=== PATIENT | male | born 1950 | race Caucasian/White ===

== ENCOUNTER 2016-10-17 10:54 | Day surgery (SDC) | payer MEDICARE, OTHER ==
[~2016-10-17] VITALS: Ht 172.7 cm; Wt 71.2 kg
[2016-10-17] MEDS ORDERED: LIDOCAINE 2%HCL (LOCAL ANESTH.) INJ 20ML MDV ONE (11:51)
[2016-10-17] MEDS ORDERED: IOHEXOL 350 MG/ML 100ML IJ ONE (11:51)
[2016-10-17] MEDS ORDERED: MIDAZOLAM HCL 1MG/1ML-2 ML VIAL ONE (13:04)
[2016-10-17] MEDS ORDERED: ANGIOMAX 250 MG VIAL IV ONE (13:04)
[2016-10-17] MEDS ORDERED: fentaNYL CITRATE 100 MCG/2 ML VL ONE (13:04)
[2016-10-17] MEDS ORDERED: SODIUM CHL 0.9% 0 ML ONE (13:05)
[2016-10-17] MEDS ORDERED: SODIUM CHLORIDE 0.9% 1,000 ML IV SCH (14:19)
== END 2016-10-17 16:00 | disposition home or self-care (01) ==
LOC: CATH 10:54 → EDUNIT# 10:54 → CATH 16:00
PROVIDERS: ATTEND Internal Medicine Cardiovascular Disease
DX: I25.10 Atherosclerotic heart disease of native coronary artery without angina pectoris (principal); Z95.1 Presence of aortocoronary bypass graft; R94.39 Abnormal result of other cardiovascular function study; I74.8 Embolism and thrombosis of other arteries
CPT/HCPCS: 93460; C1760; C1894; J1644; J2250; J3010; J7030; Q9967; 99152

== ENCOUNTER 2017-06-15 07:38 | Day surgery (SDC) | payer MEDICARE, OTHER ==
[~2017-06-15] VITALS: Ht 172.7 cm; Wt 80.7 kg
[~2017-06-15 07:38] MED LIST: ALPR1TAB2 PO; ASPI81TA27 PO; ATEN-60 PO; CLOP75TA28 PO; HYDR2TAB58 PO; IOHEXOL 350 MG/ML 100ML IJ ONE; ISOS10TA2 PO; LIDOCAINE 2%HCL (LOCAL ANESTH.) INJ 20ML MDV ONE; NITR0.4S29 SL; POTA20TA53 PO; QUET50TA PO; RANO500T2 PO; ROSU40TA PO; TEMA15CA91 PO; VORT10TA PO
[2017-06-15] MEDS ORDERED: fentaNYL CITRATE 100 MCG/2 ML VL ONE ×2 (08:05→09:00)
[2017-06-15] MEDS ORDERED: ANGIOMAX 250 MG VIAL IV ONE (08:05)
[2017-06-15] MEDS ORDERED: SODIUM CHL 0.9% 0 ML ONE (08:06)
[2017-06-15] MEDS ORDERED: MIDAZOLAM HCL 1MG/1ML-2 ML VIAL ONE ×2 (08:06→08:53)
[2017-06-15] MEDS ORDERED: IODIXANOL 320MG/ML 100ML BTL IV ONE (08:38)
== END 2017-06-15 11:20 | disposition home or self-care (01) ==
LOC: CATH 07:38
PROVIDERS: ATTEND Internal Medicine
DX: I25.10 Atherosclerotic heart disease of native coronary artery without angina pectoris (principal); R94.39 Abnormal result of other cardiovascular function study; Z88.4 Allergy status to anesthetic agent; Z88.1 Allergy status to other antibiotic agents; E66.9 Obesity, unspecified; Z68.27 Body mass index [BMI] 27.0-27.9, adult; Z95.1 Presence of aortocoronary bypass graft; I10 Essential (primary) hypertension; E11.9 Type 2 diabetes mellitus without complications
CPT/HCPCS: 93458; C1760; C1769; C1894; J1644; J2250; J3010; J7030; Q9967; 99152; 99153

== ENCOUNTER → 2017-12-19 | Outpatient (CLI) | payer MEDICARE, OTHER ==
[~2017-12-19] VITALS: Ht 172.7 cm; Wt 81.6 kg
[~2017-12-19] MED LIST changes: +ADENOSINE 90 MG/30 ML INJ IV ONE; +ALPR1TAB7 PO; +ASPI81TA13 PO; +BENA10TA53 PO; +ESCI20TA PO; +EZET10TA38 PO; +FURO20TA PO; +HYDR-4683 PO; -IOHEXOL 350 MG/ML 100ML IJ ONE; +ISOS1TAB37 PO; +LANS15CA21 PO; +LEVO100T8 PO; -LIDOCAINE 2%HCL (LOCAL ANESTH.) INJ 20ML MDV ONE; +MEGE40SU PO; +POT20T PO; +ROSU20TA14 PO; +ZOLP10TA6 PO
== END | disposition home or self-care (01) ==
LOC: MERGE 08:54 → Rad HDHVI 08:54
PROVIDERS: ATTEND Internal Medicine Cardiovascular Disease
DX: I25.10 Atherosclerotic heart disease of native coronary artery without angina pectoris (principal); I10 Essential (primary) hypertension; E78.5 Hyperlipidemia, unspecified; R53.1 Weakness; Z95.1 Presence of aortocoronary bypass graft
CPT/HCPCS: 78452; 93005; 96374; 96375; A9500; J0153

== ENCOUNTER → 2017-12-28 | Outpatient (CLI) | payer MEDICARE, OTHER ==
[~2017-12-28] MED LIST changes: -ADENOSINE 90 MG/30 ML INJ IV ONE
[2017-12-28 11:05] VITALS: BP 125/71
[2017-12-28 11:35] VITALS: BP 117/72
[2017-12-28 15:55] LABS: Basophils # (auto) 0 uL; Basophils % (auto) 0.9 % (0.0-2.0); Eosinophils # (auto) 0.1 uL; Hematocrit 38.5 % (41.0-53.0); Hemoglobin 13.1 g/dL (13.5-17.5); Lymphocytes # (auto) 1.1 uL; Lymphocytes % (auto) 23.6 % (10.0-50.0); Mean Corpuscular Hemoglobin 30.6 pg (28.0-32.0); Mean Corpuscular Hgb Conc. 33.9 g/dL (32.0-36.0); Monocytes # (auto) 0.4 uL; Monocytes % (auto) 8.3 % (0.0-12.0); Neutrophils # (auto) 3.1 uL; Neutrophils % (auto) 64.2 % (37.0-80.0); Nucleated Red Blood Cells % 0.1 %; Platelet Count (auto) 181 10^3/uL (140-450); Red Blood Cells 4.27 10^6/uL (4.5-5.90); Red Cell Distribution Width 14.2 % (11.8-14.3); White Blood Cell 4.9 10^3/uL (4.4-10.8)
[2017-12-28 15:57] LABS: BUN/Creatinine Ratio 15.1; Calcium 8.4 mg/dL (8.5-10.1); Potassium 3.8 mmol/L (3.5-5.1)
[2017-12-28 16:04] LABS: INR 0.99 (0.9-1.15); Partial Thromboplastin Time 25.4 sec (23.78-33.04); Prothrombin Time 10.6 sec (9.27-12.13)
== END | disposition home or self-care (01) ==
LOC: MERGE 10:50 → Rad HDHVI 10:50
PROVIDERS: ATTEND Internal Medicine Cardiovascular Disease
DX: Z01.818 Encounter for other preprocedural examination (principal); I70.0 Atherosclerosis of aorta; I10 Essential (primary) hypertension; D64.9 Anemia, unspecified; R79.1 Abnormal coagulation profile; Z95.1 Presence of aortocoronary bypass graft; Z79.899 Other long term (current) drug therapy
CPT/HCPCS: 36415; 71046; 80048; 85025; 85610; 85730; G0463

== ENCOUNTER 2018-01-02 07:05 | Day surgery (SDC) | payer MEDICARE, OTHER ==
[~2018-01-02 07:05] MED LIST changes: +ASPI1TAB19 PO; -ASPI81TA13 PO; -BENA10TA53 PO; +BENA10TA84 PO; -POTA20TA53 PO; -QUET50TA PO
[2018-01-02] MEDS ORDERED: LIDOCAINE 2% (LOCAL ANESTH.) PF 5ml SDV ONE (07:25)
[2018-01-02] MEDS ORDERED: IOHEXOL 350 MG/ML 100ML IJ ONE (07:25)
[2018-01-02] MEDS ORDERED: IODIXANOL 320MG/ML 100ML BTL IV ONE (07:26)
[2018-01-02] MEDS ORDERED: ANGIOMAX 250 MG VIAL IV ONE (07:38)
[2018-01-02] MEDS ORDERED: fentaNYL CITRATE 100 MCG/2 ML VL ONE (07:39)
[2018-01-02] MEDS ORDERED: MIDAZOLAM HCL 1MG/1ML-2 ML VIAL ONE (07:39)
[2018-01-02] MEDS ORDERED: SODIUM CHL 0.9% 50 ML ONE (07:39)
[2018-01-02] MEDS ORDERED: diphenhdrAMINE HCL 50 MG/1 ML VL ONE (09:27)
== END 2018-01-02 12:50 | disposition home or self-care (01) ==
LOC: CATH 07:05
PROVIDERS: ATTEND Internal Medicine
DX: I25.119 Atherosclerotic heart disease of native coronary artery with unspecified angina pectoris (principal); Q25.0 Patent ductus arteriosus; I10 Essential (primary) hypertension; E11.9 Type 2 diabetes mellitus without complications; E78.5 Hyperlipidemia, unspecified; Z88.1 Allergy status to other antibiotic agents; Z88.6 Allergy status to analgesic agent; Z95.1 Presence of aortocoronary bypass graft; Z95.5 Presence of coronary angioplasty implant and graft; Z82.49 Family history of ischemic heart disease and other diseases of the circulatory system
CPT/HCPCS: 93459; 93571; 93572; A6257; C1760; C1769; C1887; C1894; J0583; J1200; J1644; J2001; J2250; J3010; J7030; Q9967; 99152; 99153

== ENCOUNTER → 2018-02-13 | Outpatient (CLI) | payer MEDICARE, OTHER ==
[~2018-02-13] MED LIST changes: +IOHEXOL 350 MG/ML 100ML IJ ONE
[2018-02-13 11:10] VITALS: BP 134/75
[2018-02-13 12:10] VITALS: BP 126/65
== END | disposition home or self-care (01) ==
LOC: Rad HDHVI 11:33
PROVIDERS: ATTEND Internal Medicine
DX: S09.90XA Unspecified injury of head, initial encounter (principal); I67.2 Cerebral atherosclerosis; I67.82 Cerebral ischemia; X58.XXXA Exposure to other specified factors, initial encounter; Y93.89 Activity, other specified; Y92.89 Other specified places as the place of occurrence of the external cause; Y99.8 Other external cause status
CPT/HCPCS: 70470; 82565; G0463; Q9967

== ENCOUNTER → 2018-05-03 | Outpatient (CLI) | payer MEDICARE, OTHER ==
[~2018-05-03] VITALS: Ht 30.5 cm; Wt 0.5 kg
[~2018-05-03] MED LIST changes: -IOHEXOL 350 MG/ML 100ML IJ ONE; +ONDANSETRON HCL 4 MG/2 ML VIAL IV ONE; +ONDANSETRON HCL 4 MG/2 ML VIAL ONE
[2018-05-03 12:00] VITALS: BP 109/63
[2018-05-03 12:25] VITALS: BP 116/69
--- NOTE | 2018-05-03 12:25 | NUR ---
IN TO CLINIC AFTER SEEING DR TANG. PT REPORT NAUSEA AND VOMITING, MUCOUS MEMBRANES APPEAR DRY. MEDICATION ADMINISTAERED PER ORDER TOLERATED WELL. OBSERVED FOR 10 MINUTES POST INJECTION WITH NO ADVERSE REACTION NOTED. VS WNL. AFFECT CHEERFUL AND JOKING. MEDICATION ADMINISTRATION ZOFRAN 4 MG IVP AT 1215 Discharge Instructions See e-MAR for any mediations given with this visit. Patient education given on disease process. Patient verbalized understanding. Previous labs reviewed. Patient discharged in stable condition with after care instructions and follow up appointment.
== END | disposition home or self-care (01) ==
LOC: CHF HDHVI 12:07
PROVIDERS: ATTEND Internal Medicine Cardiovascular Disease
DX: E86.0 Dehydration (principal); I12.9 Hypertensive chronic kidney disease with stage 1 through stage 4 chronic kidney disease, or unspecified chronic kidney disease; E11.22 Type 2 diabetes mellitus with diabetic chronic kidney disease; N18.1 Chronic kidney disease, stage 1; R11.0 Nausea; I08.3 Combined rheumatic disorders of mitral, aortic and tricuspid valves; I25.10 Atherosclerotic heart disease of native coronary artery without angina pectoris; G89.29 Other chronic pain; E66.9 Obesity, unspecified; F41.9 Anxiety disorder, unspecified; J44.9 Chronic obstructive pulmonary disease, unspecified; I25.2 Old myocardial infarction; E03.9 Hypothyroidism, unspecified; E78.00 Pure hypercholesterolemia, unspecified; Z95.5 Presence of coronary angioplasty implant and graft; Z95.1 Presence of aortocoronary bypass graft; Z79.899 Other long term (current) drug therapy; Z86.73 Personal history of transient ischemic attack (TIA), and cerebral infarction without residual deficits; Z68.27 Body mass index [BMI] 27.0-27.9, adult
CPT/HCPCS: 96374; G0463; J2405

== ENCOUNTER → 2018-06-18 | Outpatient (CLI) | payer MEDICARE, OTHER ==
[~2018-06-18] MED LIST changes: -ONDANSETRON HCL 4 MG/2 ML VIAL IV ONE; -ONDANSETRON HCL 4 MG/2 ML VIAL ONE
== END | disposition home or self-care (01) ==
LOC: Rad HDHVI 16:26
PROVIDERS: ATTEND Internal Medicine
DX: M51.37 Other intervertebral disc degeneration, lumbosacral region (principal)
CPT/HCPCS: 72100

== ENCOUNTER → 2019-03-06 | Outpatient (CLI) | payer MEDICARE, OTHER ==
[~2019-03-06] VITALS: Ht 172.7 cm; Wt 78.0 kg
[~2019-03-06] MED LIST changes: +ADENOSINE 66 MG in GIVE UN-DILUTED 0 ML IV ONE; +ADENOSINE 90 MG/30 ML INJ IV ONE; +ASPI-404 PO; -ASPI81TA27 PO; +EZET10TA24 PO; -EZET10TA38 PO; +FURO1TAB33 PO; -FURO20TA PO; -HYDR-4683 PO; +HYDR-4833 PO
== END | disposition home or self-care (01) ==
LOC: Rad HDHVI 13:20
PROVIDERS: ATTEND Internal Medicine
DX: R07.89 Other chest pain (principal); I10 Essential (primary) hypertension; E78.00 Pure hypercholesterolemia, unspecified; Z95.1 Presence of aortocoronary bypass graft
CPT/HCPCS: 78452; 93005; 96374; 96375; A9500; J0153

== ENCOUNTER → 2019-06-10 | Outpatient (CLI) | payer MEDICARE, OTHER ==
[~2019-06-10] MED LIST changes: -ADENOSINE 66 MG in GIVE UN-DILUTED 0 ML IV ONE; -ADENOSINE 90 MG/30 ML INJ IV ONE
== END | disposition home or self-care (01) ==
LOC: Rad HDHVI 12:52
PROVIDERS: ATTEND Internal Medicine
DX: R06.02 Shortness of breath (principal); I10 Essential (primary) hypertension; R07.9 Chest pain, unspecified
CPT/HCPCS: 93306

== ENCOUNTER → 2019-09-03 | Outpatient (CLI) | payer MEDICARE, OTHER ==
[2019-09-04 04:06] LABS: RPR Non Reactive (Non Reactive)
[2019-09-04 09:01] LABS: Hepatitis B Surface Antibody Negative
[2019-09-04 09:38] LABS: Hepatitis A Total Antibody Negative
[2019-09-04 09:47] LABS: Hepatitis B Core Total AB Negative; Hepatitis B Surface Antigen Negative (Negative); Hepatitis C Antibody Negative (Negative)
== END | disposition home or self-care (01) ==
LOC: LAB 14:14
PROVIDERS: ATTEND Internal Medicine
DX: Z11.4 Encounter for screening for human immunodeficiency virus [HIV] (principal); B20 Human immunodeficiency virus [HIV] disease; Z20.5 Contact with and (suspected) exposure to viral hepatitis
CPT/HCPCS: 36415; 86592; 86695; 86696; 86703; 86704; 86706; 86708; 86803; 87340

== ENCOUNTER → 2019-09-25 | Outpatient (CLI) | payer MEDICARE, OTHER | END | disposition home or self-care (01) | LOC: LAB 14:54 | PROVIDERS: ATTEND Internal Medicine | DX: A74.9 Chlamydial infection, unspecified (principal); A54.9 Gonococcal infection, unspecified ==

== ENCOUNTER → 2020-01-02 | Outpatient (CLI) | payer MEDICARE, OTHER ==
[~2020-01-02] MED LIST changes: -ASPI-404 PO; +ASPI-543 PO; +ASPI-691 PO; +HYDR4TAB2 PO; +LANS30CA57 PO; +QUET50TA PO
[2020-01-02 13:06] LABS: Basophils # (auto) 0 10 ^3/uL (0-0.2); Basophils % (auto) 0.7 % (0.0-2.0); Eosinophils # (auto) 0.2 10 ^3/uL (0-0.8); Eosinophils % (auto) 2.9 % (0.0-7.0); Hematocrit 38.8 % (41.0-53.0); Hemoglobin 12.8 g/dL (13.5-17.5); Lymphocytes # (auto) 1.6 10 ^3/uL (0.4-5.4); Lymphocytes % (auto) 28.9 % (10.0-50.0); Mean Corpuscular Hemoglobin 29.5 pg (28.0-32.0); Mean Corpuscular Hgb Conc. 32.9 g/dL (32.0-36.0); Mean Corpuscular Volume 89.9 fL (80.0-100.0); Monocytes # (auto) 0.5 10 ^3/uL (0-1.3); Monocytes % (auto) 8.1 % (0.0-12.0); Neutrophils # (auto) 3.4 10 ^3/uL (1.6-8.6); Neutrophils % (auto) 59.4 % (37.0-80.0); Nucleated Red Blood Cells % 0.1 %; Platelet Count (auto) 208 10^3/uL (140-450); Red Blood Cells 4.32 10^6/uL (4.5-5.90); Red Cell Distribution Width 13.5 % (11.8-14.3); White Blood Cell 5.7 10^3/uL (4.4-10.8)
[2020-01-02 13:16] LABS: Potassium 3.7 mmol/L (3.5-5.1)
[2020-01-02 13:19] LABS: BUN/Creatinine Ratio 11.1; Calcium 8.9 mg/dL (8.5-10.1)
[2020-01-02 13:22] LABS: INR 1.04 (0.9-1.15); Partial Thromboplastin Time 25.6 sec (23.0-31.2)
== END | disposition home or self-care (01) ==
LOC: Rad HDHVI 10:10
PROVIDERS: ATTEND Internal Medicine
DX: Z01.812 Encounter for preprocedural laboratory examination (principal); I70.0 Atherosclerosis of aorta; R07.9 Chest pain, unspecified; Z95.1 Presence of aortocoronary bypass graft
CPT/HCPCS: 36415; 71046; 80048; 85025; 85610; 85730

== ENCOUNTER 2020-01-21 06:58 | Inpatient (IN) | payer MEDICARE, OTHER ==
--- NOTE | 2020-01-02 14:35 | NUR ---
Per pt. and , their daughter who was visiting them in their home yesterday called 20 minutes ago & informed them that she was just notified by her local ER that she tested positive for COVID-19. Apparently she felt ill after arriving home from her visit & went to her local ER to be evaluated. Dr. Ivory notified by this RN re: this situation & orders received to postpone procedure until after incubation period of at least 2 wks. Pt. and instructed to return to Dr. Ivory's office to reschedule Heart Cath procedure and were compliant.
--- NOTE | 2020-01-08 16:45 | NUR ---
See Communication order re: [facility] procedure schedule change.
[~2020-01-21] VITALS: Ht 172.7 cm; Wt 84.3 kg
[~2020-01-21 06:58] MED LIST changes: -ALPR1TAB7 PO; -ASPI-543 PO; -ASPI1TAB19 PO; -BENA10TA84 PO; -ESCI20TA PO; -EZET10TA24 PO; -FURO1TAB33 PO; -HYDR-4833 PO; -HYDR2TAB58 PO; -ISOS10TA2 PO; -ISOS1TAB37 PO; -LANS15CA21 PO; -MEGE40SU PO; -POT20T PO; -RANO500T2 PO; -ROSU20TA14 PO; -TEMA15CA91 PO; -ZOLP10TA6 PO
[2020-01-21] MEDS ORDERED: IODIXANOL 320MG/ML 100ML BTL IV ONE ×2 (07:35→09:40)
[2020-01-21] MEDS ORDERED: LIDOCAINE 2%HCL (LOCAL ANESTH.) INJ 20ML MDV ONE (07:35)
[2020-01-21] MEDS ORDERED: ANGIOMAX 250 MG VIAL IV ONE (08:26)
[2020-01-21] MEDS ORDERED: HEPARIN SODIUM (PORCINE) 5000 UNITS/ML 1ML VIAL ONE (08:26)
[2020-01-21] MEDS ORDERED: VERAPAMIL 2.5MG/ML INJ 2ML VIAL IV ONE (08:26)
[2020-01-21] MEDS ORDERED: fentaNYL CITRATE 100 MCG/2 ML VL ONE (08:27)
[2020-01-21] MEDS ORDERED: MIDAZOLAM HCL 1MG/1ML-2 ML VIAL ONE (08:27)
[2020-01-21] MEDS ORDERED: CLOPIDOGREL BISULFATE 75 MG TAB ONE (10:03)
[2020-01-21] MEDS ORDERED: ASPirin 81 mg TAB ONE (10:03)
--- NOTE | 2020-01-21 10:08 | NUR ---
[facility] report received from KOBI Maya. No s/s of distress/SOB, patient is AO x4, no c/o pain at this time. Left radial site has sign of scant blood, no active bleeding or hematoma noted, continuous pulse ox applied to left first finger. Vasc band is in place, positive circulation, sensation and movement noted to bilateral extremities. Patient verbalized understanding to post-procedure care/education.
--- NOTE | 2020-01-21 10:23 | NUR ---
Patient awake in bed, breaths are even and unlabored. Patient denies pain at this time, left radial site remains unchanged.
--- NOTE | 2020-01-21 10:25 | NUR ---
Spoke to patient's , Charleen, via telephone. Updated on POC, all questions answered at this time.
[2020-01-21] MEDS ORDERED: HYDROcodone-ACET 5/325MG TAB PO PRN (10:30)
[2020-01-21] MEDS ORDERED: NITROGLYCERIN 0.4 MG SL TAB SL PRN ×2 (10:30)
[2020-01-21] MEDS ORDERED: ACETAMINOPHEN 500 MG TAB PO PRN (10:30)
--- NOTE | 2020-01-21 10:39 | NUR ---
Report given to primary RN, Leticia.
[2020-01-21] MEDS ORDERED: HYDROmorphone HCL 2 MG TAB PO PRN (10:45)
[2020-01-21] MEDS ORDERED: ALPRAZolam 0.5 MG TAB PO PRN (10:45)
[2020-01-21] MEDS ORDERED: ASPirin-EC 325mg tab PO ONE (10:45)
[2020-01-21] MEDS ORDERED: ATENOLOL 25 MG TAB PO ONE (11:00)
[2020-01-21] MEDS ORDERED: LEVOTHYROXINE SODIUM 100 MCG TAB PO ONE (11:00)
[2020-01-21] MEDS ORDERED: CLOPIDOGREL BISULFATE 75 MG TAB PO ONE (11:00)
--- NOTE | 2020-01-21 11:00 | NUR ---
Patient taken to telemetry unit via gurney, school lunch monitor in place. No s/s of distress noted upon departure. Primary RNLeticia present at bedside to witness left radial site, scant blood noted with no s/s of hematoma formation or active bleeding. Vasc Band removal instructions given to primary RN. Bed is set in lowest locked position with side rails up x 2 for safety, call light is within reach and bed alarm set on for safety. Care endorsed to KOBI Kelly.
--- NOTE | 2020-01-21 11:00 | NUR ---
Telemetry admit from [employer] LIZETT LOVE admitted to Telemetry unit after SBAR received. Patient oriented to Leticia hernandez RN, unit, room, bed, and unit policies regarding patient care and visiting hours. Patient on room air. Scant blood noted with no s/s of hematoma formation or active bleeding. Vasc Band removal to start at 1130 tele box # 85 and telemetry reading on arrival to unit is 57. Patient weighed by bedscale and encouraged to call if they need something. All questions and concerns addressed, patient verbalized understanding.
--- NOTE | 2020-01-21 12:45 | NUR ---
vasc band completely deflated at this time. No hematoma or bleeds noted, patient denies pain.
[2020-01-21 13:00] VITALS: BP 120/73
[2020-01-21 16:22] VITALS: BP 124/71
[2020-01-21] MEDS ORDERED: ROSUVASTATIN CALCIUM 40 MG PO SCH (18:00)
[2020-01-21] MEDS ORDERED: QUEtiapine FUMARATE 25 MG TAB PO SCH (18:00)
--- NOTE | 2020-01-21 19:00 | NUR ---
Opening Shift Note Assumed care of patient, awake and alert x4. No S/S of distress/SOB or pain. Left heart cath site of puncture at left radial is clean and dry. no signs of bleeding and hematoma. Placed gauze and micropore. Educate patient on heart cath site care. Insructed on POC and to call for assist PRN, will continue to monitor for changes Q1hr and PRN. Patient agreed and verbalize understanding.
[2020-01-21 21:26] VITALS: BP 112/59
--- NOTE | 2020-01-22 00:45 | NUR ---
Patient asleep right now. No needs and no SOB seen. will continue to monitor patient.
--- NOTE | 2020-01-22 04:52 | NUR ---
OBTAINED EKG. PATIENT NO COMPLAINS. DENIES ANY NEEDS RIGHT NOW.
[2020-01-22 05:59] VITALS: BP 111/54
--- NOTE | 2020-01-22 06:55 | NUR ---
CLOSING SHIFT EVENT PATIENT ASLEEP, NO SOB, NO PAIN, NO COMPLAINS. ALL NEEDS MET. REPORT GIVEN.
[2020-01-22] MEDS ORDERED: CLOPIDOGREL BISULFATE 75 MG TAB PO SCH (07:00)
[2020-01-22] MEDS ORDERED: ATENOLOL 25 MG TAB PO SCH (07:00)
[2020-01-22] MEDS ORDERED: ASPirin-EC 325mg tab PO SCH (07:00)
[2020-01-22] MEDS ORDERED: LEVOTHYROXINE SODIUM 100 MCG TAB PO SCH (07:00)
--- NOTE | 2020-01-22 07:30 | NUR ---
Opening Shift Note Assumed care of patient, who is alert and oriented x4. Respirations even and unlabored. No S/S of distress/SOB or pain. Noted incision to left radial s/p LHC with Dr. Ivory. No hematoma, swelling or numbness noted or expressed. Bed is low, locked with 2x side rails up. Call light is within reach. Instructed on POC and to call for assist PRN, will continue to monitor for changes Q1hr and PRN.
[2020-01-22 08:00] VITALS: BP 115/66
[2020-01-22] MEDS ORDERED: LANSOPRAZOLE PO SCH (08:00)
[2020-01-22] MEDS ORDERED: [UNRECOGNIZED DRUG - OTHER] PO SCH (08:00)
[2020-01-22 09:00] VITALS: BP 115/66
[2020-01-22 12:09] VITALS: BP 115/66
--- NOTE | 2020-01-22 14:37 | NUR ---
Discharge instructions given as ordered. Encourage to follow up with PMD as instructed. Scheduled patient for two follow up appointments. Patient aware of restrictions to left hand secondary to LHC. All questions and concerns addressed. Patient verbalized understanding. IV removed with catheter intact, pressure dressing applied. Telemetry unit returned to ICU. Patient ambulated off unit to lobby down stairs. Patient wanted to wait for outside lobby doors. No distress noted.
== END 2020-01-22 14:36 | disposition home or self-care (01) | DRG 247 ==
LOC: CATH 06:58 → TELE-WESTW 11:37
PROVIDERS: ADMIT Internal Medicine; ATTEND Internal Medicine
PROC: 027034Z Dilation of Coronary Artery, One Artery with Drug-eluting Intraluminal Device, Percutaneous Approach (ICD-10-PCS; principal; 2020-01-21)
PROC: 4A023N7 Measurement of Cardiac Sampling and Pressure, Left Heart, Percutaneous Approach (ICD-10-PCS; 2020-01-21)
PROC: B213YZZ Fluoroscopy of Multiple Coronary Artery Bypass Grafts using Other Contrast (ICD-10-PCS; 2020-01-21)
PROC: B218YZZ Fluoroscopy of Left Internal Mammary Bypass Graft using Other Contrast (ICD-10-PCS; 2020-01-21)
PROC: B211YZZ Fluoroscopy of Multiple Coronary Arteries using Other Contrast (ICD-10-PCS; 2020-01-21)
PROC: B215YZZ Fluoroscopy of Left Heart using Other Contrast (ICD-10-PCS; 2020-01-21)
DX: I25.110 Atherosclerotic heart disease of native coronary artery with unstable angina pectoris (principal); G89.29 Other chronic pain; E78.5 Hyperlipidemia, unspecified; I10 Essential (primary) hypertension; M54.9 Dorsalgia, unspecified; M19.90 Unspecified osteoarthritis, unspecified site; Z95.1 Presence of aortocoronary bypass graft; Z20.828 Contact with and (suspected) exposure to other viral communicable diseases
CPT/HCPCS: 36415; 82565; 84520; 92928; 93005; 93459; 99152; 99153; C1874; C1887; G0378; J2250; Q9967

== ENCOUNTER → 2020-06-29 | Outpatient (CLI) | payer MEDICARE, OTHER ==
[~2020-06-29] MED LIST changes: +IODIXANOL 320MG/ML 100ML BTL IV ONE
[2020-06-29 15:42] VITALS: BP 124/64
[2020-06-29 16:35] LABS: Albumin 3.5 g/dL (3.4-5.0); Calcium 8.8 mg/dL (8.5-10.1); Potassium 4.1 mmol/L (3.5-5.1)
[2020-06-29 16:38] LABS: BUN/Creatinine Ratio 15.5; Bilirubin, Total 0.6 mg/dL (0.2-1.0); Total Protein 7.1 g/dL (6.4-8.2)
[2020-06-29 16:56] VITALS: BP 141/69
== END | disposition home or self-care (01) ==
LOC: Rad HDHVI 15:32
PROVIDERS: ATTEND Internal Medicine
DX: I67.2 Cerebral atherosclerosis (principal); I67.82 Cerebral ischemia; R94.4 Abnormal results of kidney function studies; R25.2 Cramp and spasm
CPT/HCPCS: 36415; 70470; 80053; G0463; Q9967

== ENCOUNTER → 2020-12-15 | Outpatient (CLI) | payer MEDICARE, OTHER ==
[~2020-12-15] MED LIST changes: -IODIXANOL 320MG/ML 100ML BTL IV ONE
[2020-12-15 11:16] LABS: Basophils # (auto) 0.1 10 ^3/uL (0-0.2); Basophils % (auto) 0.9 % (0.0-2.0); Eosinophils # (auto) 0.2 10 ^3/uL (0-0.8); Eosinophils % (auto) 2.8 % (0.0-7.0); Hematocrit 39.4 % (41.0-53.0); Hemoglobin 13.2 g/dL (13.5-17.5); Lymphocytes # (auto) 1.4 10 ^3/uL (0.4-5.4); Lymphocytes % (auto) 25.7 % (10.0-50.0); Mean Corpuscular Hemoglobin 30.7 pg (28.0-32.0); Mean Corpuscular Hgb Conc. 33.5 g/dL (32.0-36.0); Mean Corpuscular Volume 91.8 fL (80.0-100.0); Monocytes # (auto) 0.5 10 ^3/uL (0-1.3); Monocytes % (auto) 8.8 % (0.0-12.0); Neutrophils # (auto) 3.5 10 ^3/uL (1.6-8.6); Neutrophils % (auto) 61.8 % (37.0-80.0); Red Cell Distribution Width 13.1 % (11.8-14.3); White Blood Cell 5.6 10^3/uL (4.4-10.8)
[2020-12-15 11:29] LABS: INR 1.04 (0.9-1.15); Partial Thromboplastin Time 25.8 sec (23.6-33.0)
[2020-12-15 11:30] LABS: Albumin 3.7 g/dL (3.4-5.0); Calcium 9.3 mg/dL (8.5-10.1); Potassium 4.9 mmol/L (3.5-5.1)
[2020-12-15 11:36] LABS: BUN/Creatinine Ratio 22.3; Bilirubin, Total 0.4 mg/dL (0.2-1.0); Total Protein 7.8 g/dL (6.4-8.2)
== END | disposition home or self-care (01) ==
LOC: LAB 09:57
PROVIDERS: ATTEND Internal Medicine Cardiovascular Disease
DX: Z01.812 Encounter for preprocedural laboratory examination (principal); I50.9 Heart failure, unspecified
CPT/HCPCS: 36415; 80053; 85025; 85610; 85730

== ENCOUNTER → 2021-08-15 | Outpatient (CLI) | payer MEDICARE, OTHER ==
[~2021-08-15] MED LIST changes: +ASPI1TAB20 PO; +ERY05OO OP; +HEPARIN IN NS 1000Units/500mL 1,500 ML ONE; +HYDR-4798 PO; +HYDR1INJ; +IODIXANOL 320MG/ML 100ML BTL IV ONE; +LIDOCAINE 2%HCL (LOCAL ANESTH.) INJ 10ml MDV ONE; +RANO1000 PO
[2021-08-15 12:40] VITALS: BP 138/62
[2021-08-15 12:52] VITALS: BP 117/63
[2021-08-15 16:24] LABS: Basophils # (auto) 0 10 ^3/uL (0-0.2); Basophils % (auto) 0.4 % (0.0-2.0); Eosinophils # (auto) 0.2 10 ^3/uL (0-0.8); Eosinophils % (auto) 3.7 % (0.0-7.0); Hematocrit 37.2 % (41.0-53.0); Hemoglobin 12.6 g/dL (13.5-17.5); Lymphocytes # (auto) 1.9 10 ^3/uL (0.4-5.4); Mean Corpuscular Hemoglobin 30.4 pg (28.0-32.0); Mean Corpuscular Hgb Conc. 33.8 g/dL (32.0-36.0); Mean Corpuscular Volume 89.8 fL (80.0-100.0); Monocytes # (auto) 0.4 10 ^3/uL (0-1.3); Monocytes % (auto) 8.3 % (0.0-12.0); Neutrophils # (auto) 2.7 10 ^3/uL (1.6-8.6); Neutrophils % (auto) 51.6 % (37.0-80.0); Nucleated Red Blood Cells % 0.1 %; Red Blood Cells 4.14 10^6/uL (4.5-5.90); Red Cell Distribution Width 13.6 % (11.8-14.3); White Blood Cell 5.2 10^3/uL (4.4-10.8)
[2021-08-15 16:32] LABS: INR 1.03 (0.9-1.15); Partial Thromboplastin Time 24.8 sec (23.6-33.0)
[2021-08-15 16:46] LABS: Potassium 4.2 mmol/L (3.5-5.1); Sodium 142 mmol/L (136-145)
[2021-08-15 16:47] LABS: Anion Gap 7 (5-15); BUN/Creatinine Ratio 15.2; Blood Urea Nitrogen 22 mg/dL (7-18); Carbon Dioxide 25 mmol/L (21-32); Chloride 110 mmol/L (98-107); GFR African American 62 mL/min; GFR Non-African American 51 mL/min; Glucose 113 mg/dL (74-106)
== END | disposition home or self-care (01) ==
LOC: Rad HDHVI 12:29
PROVIDERS: ATTEND Internal Medicine
DX: R07.9 Chest pain, unspecified (principal); I10 Essential (primary) hypertension; I25.10 Atherosclerotic heart disease of native coronary artery without angina pectoris; M47.814 Spondylosis without myelopathy or radiculopathy, thoracic region; Z98.1 Arthrodesis status
CPT/HCPCS: 36415; 71046; 80048; 85025; 85610; 85730; 93005; G0463

== ENCOUNTER 2021-08-17 08:05 | Day surgery (SDC) | payer MEDICARE, OTHER ==
[~2021-08-17] VITALS: Ht 172.7 cm; Wt 80.7 kg
[~2021-08-17 08:05] MED LIST changes: -ASPI-691 PO; -HEPARIN IN NS 1000Units/500mL 1,500 ML ONE; -IODIXANOL 320MG/ML 100ML BTL IV ONE; -LIDOCAINE 2%HCL (LOCAL ANESTH.) INJ 10ml MDV ONE; -QUET50TA PO; -ROSU40TA PO
[2021-08-17] MEDS ORDERED: HEPARIN IN NS 1000U/500ML (2UNIT/ML) 500 ML BAG/KIT IV ONE (08:06)
[2021-08-17] MEDS ORDERED: SODIUM CHL 0.9% 50 ML ONE (09:33)
[2021-08-17] MEDS ORDERED: ANGIOMAX 250 MG VIAL IV ONE ×2 (09:33→10:45)
[2021-08-17] MEDS ORDERED: fentaNYL CITRATE 100 MCG/2 ML VL ONE (09:33)
[2021-08-17] MEDS ORDERED: MIDAZOLAM HCL 2MG/2ML 2ml VIAL (1mg/ml) ONE ×2 (09:33→10:21)
[2021-08-17] MEDS ORDERED: LIDOCAINE 2%HCL (LOCAL ANESTH.) INJ 20ML MDV ONE (09:41)
[2021-08-17] MEDS ORDERED: diphenhdrAMINE HCL 50 MG/1 ML VL ONE (09:45)
[2021-08-17] MEDS ORDERED: IODIXANOL 320MG/ML 100ML BTL IV ONE ×2 (10:46→11:04)
[2021-08-17] MEDS ORDERED: ceFAZolin 1GM/50ML 50 ML IV ONE (10:51)
[2021-08-17] MEDS ORDERED: ASPirin 81 mg TAB ONE (11:15)
[2021-08-17] MEDS ORDERED: CLOPIDOGREL BISULFATE 75 MG TAB ONE (11:15)
[2021-08-17 11:30] VITALS: BP 140/61
[2021-08-17 11:45] VITALS: BP 125/56
[2021-08-17 12:01] VITALS: BP 118/62
[2021-08-17 12:17] VITALS: BP 125/60
[2021-08-17 12:29] VITALS: BP 126/63
[2021-08-17 12:58] VITALS: BP 135/61
== END 2021-08-17 15:00 | disposition home or self-care (01) ==
LOC: CATH 08:05
PROVIDERS: ATTEND Internal Medicine
DX: I25.119 Atherosclerotic heart disease of native coronary artery with unspecified angina pectoris (principal); I10 Essential (primary) hypertension; Z95.1 Presence of aortocoronary bypass graft; Z95.5 Presence of coronary angioplasty implant and graft; Z98.890 Other specified postprocedural states; Z91.012 Allergy to eggs; Z88.6 Allergy status to analgesic agent; Z88.8 Allergy status to other drugs, medicaments and biological substances; Z79.899 Other long term (current) drug therapy; Z82.49 Family history of ischemic heart disease and other diseases of the circulatory system; Z20.822 Contact with and (suspected) exposure to COVID-19
CPT/HCPCS: 93459; 93571; C1725; C1760; C1769; C1874; C1887; C1894; C9600; J0583; J0690; J1200; J1644; J2001; J2250; J3010; J7030; Q9967; U0003; 99152; 99153

== ENCOUNTER → 2022-02-13 | Outpatient (CLI) | payer MEDICARE, OTHER | END | disposition home or self-care (01) | LOC: Rad HDHVI 10:39 | PROVIDERS: ATTEND Internal Medicine Cardiovascular Disease | DX: R90.82 White matter disease, unspecified (principal); I63.9 Cerebral infarction, unspecified | CPT/HCPCS: 70450 ==

== ENCOUNTER → 2022-02-17 | Outpatient (CLI) | payer MEDICARE, OTHER ==
[~2022-02-17] VITALS: Ht 172.7 cm; Wt 81.6 kg
[~2022-02-17] MED LIST changes: +ADENOSINE 69 MG in GIVE UN-DILUTED 0 ML IV ONE; +ADENOSINE 90 MG/30 ML INJ IV ONE
== END | disposition home or self-care (01) ==
LOC: Rad HDHVI 09:15
PROVIDERS: ATTEND Internal Medicine Cardiovascular Disease
DX: I25.10 Atherosclerotic heart disease of native coronary artery without angina pectoris (principal); R07.9 Chest pain, unspecified; I10 Essential (primary) hypertension; E78.5 Hyperlipidemia, unspecified; Z82.49 Family history of ischemic heart disease and other diseases of the circulatory system; Z95.1 Presence of aortocoronary bypass graft
CPT/HCPCS: 78452; 93005; 96374; 96375; A9500; J0153

== ENCOUNTER → 2022-02-27 | Outpatient (CLI) | payer MEDICARE, OTHER ==
[~2022-02-27] MED LIST changes: -ADENOSINE 69 MG in GIVE UN-DILUTED 0 ML IV ONE; -ADENOSINE 90 MG/30 ML INJ IV ONE
== END | disposition home or self-care (01) ==
LOC: Rad HDHVI 13:05
PROVIDERS: ATTEND Internal Medicine Cardiovascular Disease
DX: I10 Essential (primary) hypertension (principal); R07.9 Chest pain, unspecified
CPT/HCPCS: 93880

== ENCOUNTER → 2022-11-29 | Outpatient (CLI) | payer MEDICARE, OTHER ==
[~2022-11-29] MED LIST changes: +ARGI500C5 PO; +HYDR2TAB58 PO; +QUET50TA PO; +ROSU40TA81 PO; +SCOP1DIS TD; +SILD100T57 PO; +ZOFR4T PO
[2022-11-29 08:20] VITALS: BP 135/65; PULSE 62; RESP 16; O2SAT 16
[2022-11-29 08:25] VITALS: BP 123/65; PULSE 63; RESP 16; O2SAT 93
== END | disposition home or self-care (01) ==
LOC: Rad HDHVI 08:14
PROVIDERS: ATTEND Internal Medicine Cardiovascular Disease
DX: Z01.818 Encounter for other preprocedural examination (principal); I50.43 Acute on chronic combined systolic (congestive) and diastolic (congestive) heart failure; R07.89 Other chest pain; I25.5 Ischemic cardiomyopathy; I20.0 Unstable angina
CPT/HCPCS: 71046; G0463

== ENCOUNTER 2022-11-30 08:24 | Day surgery (SDC) | payer MEDICARE, OTHER ==
[2022-11-29 09:20] LABS: Basophils # (auto) 0 10 ^3/uL (0-0.2); Basophils % (auto) 0.8 % (0.0-2.0); Eosinophils # (auto) 0.2 10 ^3/uL (0-0.8); Eosinophils % (auto) 3.4 % (0.0-7.0); Hematocrit 38.4 % (41.0-53.0); Hemoglobin 12.8 g/dL (13.5-17.5); Lymphocytes # (auto) 1.7 10 ^3/uL (0.4-5.4); Lymphocytes % (auto) 31.9 % (10.0-50.0); Mean Corpuscular Hemoglobin 29.8 pg (28.0-32.0); Mean Corpuscular Hgb Conc. 33.3 g/dL (32.0-36.0); Mean Corpuscular Volume 89.4 fL (80.0-100.0); Monocytes # (auto) 0.4 10 ^3/uL (0-1.3); Monocytes % (auto) 7.7 % (0.0-12.0); Neutrophils % (auto) 56.2 % (37.0-80.0); Nucleated Red Blood Cells % 0.1 %; Red Cell Distribution Width 13.9 % (11.8-14.3); White Blood Cell 5.4 10^3/uL (4.4-10.8)
[2022-11-29 09:35] LABS: Potassium 3.5 mmol/L (3.5-5.1)
[2022-11-29 09:39] LABS: BUN/Creatinine Ratio 17.2 (10.0-20.0); Calcium 9.4 mg/dL (8.5-10.1)
[2022-11-29 09:46] LABS: INR 1.02 (0.9-1.15); Partial Thromboplastin Time 26.3 SEC (24.5-34.5); Prothrombin Time 10.7 sec (9.3-11.8)
[~2022-11-30] VITALS: Ht 172.7 cm; Wt 83.0 kg
[2022-11-30] VITALS (9 sets, daily range): BP systolic 103–122; BP diastolic 45–60; PULSE 60–70; RESP 11–16; TEMP 97.5; O2SAT 93–96
[~2022-11-30 08:24] MED LIST changes: -RANO1000 PO
[2022-11-30] MEDS ORDERED: ALPRAZolam 0.5 MG TAB PO ONE (09:15)
[2022-11-30] MEDS ORDERED: ANGIOMAX 250 MG VIAL IV ONE (12:54)
[2022-11-30] MEDS ORDERED: MIDAZOLAM HCL 2MG/2ML 2ml VIAL (1mg/ml) ONE (12:55)
[2022-11-30] MEDS ORDERED: fentaNYL CITRATE 100 MCG/2 ML VL ONE (12:55)
[2022-11-30] MEDS ORDERED: SODIUM CHL 0.9% 50 ML ONE (12:55)
[2022-11-30] MEDS ORDERED: CLOPIDOGREL 300 MG TAB ONE (13:47)
[2022-11-30] MEDS ORDERED: ASPirin 325 MG TAB ONE (13:47)
[2022-11-30] MEDS ORDERED: HYDROcodone-ACET 10/325MG TAB PO ONE (15:15)
== END 2022-11-30 16:18 | disposition home or self-care (01) ==
LOC: CATH 08:24
PROVIDERS: ATTEND Internal Medicine Cardiovascular Disease
DX: I25.10 Atherosclerotic heart disease of native coronary artery without angina pectoris (principal); I10 Essential (primary) hypertension; Z88.1 Allergy status to other antibiotic agents; Z88.6 Allergy status to analgesic agent; Z87.01 Personal history of pneumonia (recurrent); Z95.5 Presence of coronary angioplasty implant and graft; Z82.49 Family history of ischemic heart disease and other diseases of the circulatory system; Z91.012 Allergy to eggs; Z79.82 Long term (current) use of aspirin; Z79.899 Other long term (current) drug therapy; Z79.891 Long term (current) use of opiate analgesic
CPT/HCPCS: 36415; 80048; 85025; 85610; 85730; 93458; C1725; C1769; C1874; C1887; C1894; C9600; J0583; J2250

== ENCOUNTER → 2023-07-09 | Outpatient (CLI) | payer MEDICARE, OTHER ==
[~2023-07-09] VITALS: Ht 172.7 cm; Wt 86.6 kg
[~2023-07-09] MED LIST changes: +ADENOSINE 73 MG in GIVE UN-DILUTED 0 ML IV ONE; +ADENOSINE 90 MG/30 ML INJ IV ONE
== END | disposition home or self-care (01) ==
LOC: Rad HDHVI 13:18
PROVIDERS: ATTEND Internal Medicine Cardiovascular Disease
DX: I25.10 Atherosclerotic heart disease of native coronary artery without angina pectoris (principal); R07.9 Chest pain, unspecified; R00.2 Palpitations; I73.9 Peripheral vascular disease, unspecified; I21.4 Non-ST elevation (NSTEMI) myocardial infarction; I42.9 Cardiomyopathy, unspecified; E78.00 Pure hypercholesterolemia, unspecified; Z95.1 Presence of aortocoronary bypass graft
CPT/HCPCS: 78452; 93005; 96374; 96375; A9500; J0153

== ENCOUNTER → 2023-07-13 | Outpatient (CLI) | payer MEDICARE, OTHER ==
[~2023-07-13] MED LIST changes: -ADENOSINE 73 MG in GIVE UN-DILUTED 0 ML IV ONE; -ADENOSINE 90 MG/30 ML INJ IV ONE
== END | disposition home or self-care (01) ==
LOC: Rad HDHVI 12:22
PROVIDERS: ATTEND Internal Medicine Cardiovascular Disease
DX: Z01.818 Encounter for other preprocedural examination (principal); M47.814 Spondylosis without myelopathy or radiculopathy, thoracic region
CPT/HCPCS: 71046

== ENCOUNTER → 2023-07-16 | Outpatient (CLI) | payer MEDICARE, OTHER ==
[2023-07-16 15:03] LABS: Basophils # (auto) 0 10 ^3/uL (0-0.2); Basophils % (auto) 0.6 % (0.0-2.0); Eosinophils # (auto) 0.1 10 ^3/uL (0-0.8); Eosinophils % (auto) 0.8 % (0.0-7.0); Hematocrit 43.6 % (41.0-53.0); Lymphocytes # (auto) 1.3 10 ^3/uL (0.4-5.4); Lymphocytes % (auto) 20.4 % (10.0-50.0); Mean Corpuscular Hgb Conc. 32.2 g/dL (32.0-36.0); Mean Corpuscular Volume 87.2 fL (80.0-100.0); Monocytes # (auto) 0.4 10 ^3/uL (0-1.3); Monocytes % (auto) 6.3 % (0.0-12.0); Neutrophils # (auto) 4.7 10 ^3/uL (1.6-8.6); Neutrophils % (auto) 71.9 % (37.0-80.0); Nucleated Red Blood Cells % 0.1 %; Red Cell Distribution Width 15.3 % (11.8-14.3); White Blood Cell 6.5 10^3/uL (4.4-10.8)
[2023-07-16 15:21] LABS: INR 1.09 (0.9-1.15); Partial Thromboplastin Time 26.2 SEC (24.5-34.5); Prothrombin Time 11.4 sec (9.3-11.8)
[2023-07-16 15:39] LABS: Alanine Aminotransferase 11 U/L (7-40); Albumin 4.4 g/dL (3.2-4.8); Alkaline Phosphatase 61 U/L (46-116); Anion Gap 4 (5-15); Aspartate Aminotransferase 13 U/L (13-40); BUN/Creatinine Ratio 10.5 (10.0-20.0); Bilirubin, Total 0.7 mg/dL (0.2-1.0); Blood Urea Nitrogen 15 mg/dL (9-23); Calcium 9.3 mg/dL (8.5-10.1); Carbon Dioxide 31 mmol/L (20-30); Chloride 106 mmol/L (98-107); Glucose 83 mg/dL (74-106); Potassium 4.3 mmol/L (3.5-5.1); Sodium 141 mmol/L (136-145); Total Protein 6.7 g/dL (5.7-8.2)
== END | disposition home or self-care (01) ==
LOC: LAB 14:27
PROVIDERS: ATTEND Internal Medicine Cardiovascular Disease
DX: Z01.810 Encounter for preprocedural cardiovascular examination (principal); R79.1 Abnormal coagulation profile
CPT/HCPCS: 36415; 80053; 85025; 85610; 85730

== ENCOUNTER → 2023-12-03 | Outpatient (CLI) | payer MEDICARE, OTHER ==
[~2023-12-03] VITALS: Ht 172.7 cm; Wt 78.9 kg
[~2023-12-03] MED LIST changes: +ADENOSINE 66 MG in GIVE UN-DILUTED 0 ML IV ONE; +ADENOSINE 90 MG/30 ML INJ IV ONE; -HYDR4TAB2 PO; +HYDR4TAB3 PO; +SILD100T PO; -SILD100T57 PO
== END | disposition home or self-care (01) ==
LOC: Rad HDHVI 13:55
PROVIDERS: ATTEND Internal Medicine Cardiovascular Disease
DX: I10 Essential (primary) hypertension (principal); I73.9 Peripheral vascular disease, unspecified; R07.89 Other chest pain; I42.9 Cardiomyopathy, unspecified; R79.89 Other specified abnormal findings of blood chemistry; I25.5 Ischemic cardiomyopathy; I21.4 Non-ST elevation (NSTEMI) myocardial infarction; E78.00 Pure hypercholesterolemia, unspecified; I25.10 Atherosclerotic heart disease of native coronary artery without angina pectoris
CPT/HCPCS: 78452; 93005; 96374; 96375; A9500; J0153

== ENCOUNTER → 2023-12-11 | Outpatient (CLI) | payer MEDICARE, OTHER ==
[~2023-12-11] MED LIST changes: -ADENOSINE 66 MG in GIVE UN-DILUTED 0 ML IV ONE; -ADENOSINE 90 MG/30 ML INJ IV ONE
== END | disposition home or self-care (01) ==
LOC: Rad HDHVI 13:22
PROVIDERS: ATTEND Internal Medicine Cardiovascular Disease
DX: I10 Essential (primary) hypertension (principal); R07.89 Other chest pain
CPT/HCPCS: 93306

== ENCOUNTER → 2024-03-14 | Outpatient (CLI) | payer MEDICARE, OTHER ==
[~2024-03-14] MED LIST changes: +IOHEXOL 350 MG/ML 100ML IJ ONE
[2024-03-14 11:55] VITALS: BP 131/71; PULSE 60; RESP 16; O2SAT 97
[2024-03-14 12:08] VITALS: BP 131/68; PULSE 61; RESP 16; O2SAT 94
--- NOTE | 2024-03-14 13:09 | DVH ---
EXAM: CT NECK WITH CONTRAST SOFT INDICATION: 73 years old, Male; DIFFICULTY SWALLOWING. Exam Date: 03/14/2024 11:58 AM COMPARISON: None TECHNIQUE: CT of the neck with intravenous contrast. RADIATION DOSE: CTDIvol: 16 mGy, DLP: 391.93 mGy*cm CONTRAST: Type of contrast: Omni 300 Contrast injected: 100 ml FINDINGS: There is no evidence of cervical mass lesion, pathologically enlarged lymph nodes or fluid collection . The fat planes of the neck appear intact. The airway and larynx are unremarkable. The parotid, submandibular and thyroid glands are unremarkable. The vascular structures of the neck appear patent. The visualized lung apices are clear. The limited visualized portions of the brain are unremarkable. There are degenerative and postsurgical changes in the spine. IMPRESSION: 1. No evidence of cervical mass lesion, pathologically enlarged lymph nodes or fluid collection. HS:Y
== END | disposition home or self-care (01) ==
LOC: Rad HDHVI 11:47
PROVIDERS: ATTEND Internal Medicine Cardiovascular Disease
DX: R13.10 Dysphagia, unspecified (principal); M47.812 Spondylosis without myelopathy or radiculopathy, cervical region; Z98.890 Other specified postprocedural states
CPT/HCPCS: 70491; G0463; Q9967

== ENCOUNTER → 2024-05-19 | Outpatient (CLI) | payer MEDICARE, OTHER ==
[~2024-05-19] MED LIST changes: -IOHEXOL 350 MG/ML 100ML IJ ONE
--- NOTE | 2024-05-19 14:54 | DVH ---
EXAM: CT THORACIC SPINE WO CONTRAS HISTORY: UPPER BACK PAIN COMPARISON: Neck 03/14/2024 CTDIvol 26.64 mGy, DLP 1328.79 mGy*cm. TECHNIQUE: Multiple axial CT images of the spine were obtained using bone algorithm. Axial and coron al reformatting was done. Bone and soft tissue windows were reviewed. FINDINGS: 12 rib-bearing thoracic type vertebra. Minimal dextroconvex curvature of the thoracic spine. The daniela tebral body heights are maintained. Multilevel anterior bridging osteophytes of the thoracic spine. M ultilevel cfed-at-apieyfpf degenerative changes of the thoracic spine. Minimal loss of superior vertebral body height of T3 ; unchanged from 03/14/2024 No evidence of acute traumatic fractures or spondylolisthesis. Partially visualized wire terminating within the intradur al spinal canal at the level of T12-L1 with the distal end not included in the thoracic imaging. No significant spinal canal or neural foramina stenosis. Mild edema of the subcutaneous fat of the posterior chest and upper abdominal fat. Multiple bilateral renal cysts, largest on the right measuring up to 3.7 cm largest on the left parti ally visualized and measuring up to 5.3 cm. There appears to be a 1.5 cm cyst from the body of the pa ncreas. Bibasilar and bilateral dependent atelectasis. IMPRESSION: No evidence of acute traumatic fractures or spondylolisthesis involving the thoracic spine. Minimal c hronic loss of superior vertebral body height of L3. Multilevel vssd-fh-czdsiuuz degenerative changes of the thoracic spine with multilevel anterior bridg ing osteophytes.
--- NOTE | 2024-05-19 15:08 | DVH ---
CT LS SPINE WO CONTRAST INDICATION: LBP EXAM DATE: 05/19/2024 01:47 PM COMPARISON: None RADIATION DOSE: CTDIvol: 26.64 mGy, DLP: 1328.79 mGy*cm Technique:: Utilizing the CT scanner, contiguous axial scans were obtained through the lumbar spine. Coronal and sagittal reformatted images were then generated. All CT scans at this medical facility are performed using dose modulation techniques as appropriate t o a performed exam including the following: Automated exposure control was utilized; adjustment of th e MA and/or KV according to patient size; and use of iterative reconstruction technique. FINDINGS: 5 gcs-ixx-inpdsuz lumbar-type vertebrae. Normal alignment of the lumbar spine. The vertebral body hei ghts are maintained. No evidence of acute traumatic fractures or spondylolisthesis. Postsurgical changes at L4-L5 and L5-S1 with post laminectomy changes at L4-L5. There is a wire exten ding intradermally from T12-L1 to posterior L5. There is additional wire of the right lower back subcutaneous fat extending to the inferior spinous p rocess of L2 with the proximal end not visualized. This may represent a fractured /abandoned wire. Multilevel uvlw-rs-erhepxyv degenerative changes of the lumbar spine. No significant spinal canal kevyn nosis. Mild left with moderate right-sided neural foramina stenosis at L4-L5. Mild atrophy of the lower paraspinal muscles. Mild soft tissue edema of the lower back soft tissues. Mild atherosclerotic calcification of the aorta and bilateral iliacs. Partially imaged lower retroper itoneal fat stranding IMPRESSION: No evidence of acute traumatic fractures or spondylolisthesis. Postsurgical changes of the lower lumb ar spine. Moderate right-sided neural foramina stenosis at L4-L5. There appears to be lower retroperitoneal fat stranding. CT abdomen and pelvis is recommended for fur ther evaluation. Multiple bilateral renal cysts. The pancreatic body cysts noted on the CT of the thoracic spine is outside the field of view on the l umbar spine study. MRI with contrast should be considered for further evaluation.
== END | disposition home or self-care (01) ==
LOC: Rad HDHVI 13:45
PROVIDERS: ATTEND Internal Medicine Cardiovascular Disease
DX: M47.814 Spondylosis without myelopathy or radiculopathy, thoracic region (principal); M47.816 Spondylosis without myelopathy or radiculopathy, lumbar region; M48.061 Spinal stenosis, lumbar region without neurogenic claudication; M25.78 Osteophyte, vertebrae; N28.1 Cyst of kidney, acquired; I70.0 Atherosclerosis of aorta; J98.11 Atelectasis; M54.6 Pain in thoracic spine; M48.8X6 Other specified spondylopathies, lumbar region; R60.9 Edema, unspecified
CPT/HCPCS: 72128; 72131

== ENCOUNTER 2024-08-29 08:23 | Inpatient (IN) | payer MEDICARE, OTHER ==
[~2024-08-29] VITALS: Ht 172.7 cm; Wt 72.7 kg
--- NOTE | 2024-08-29 08:35 | ECG ---
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
[2024-08-29 08:57] LABS: Basophils # (auto) 0 10 ^3/uL (0-0.2); Basophils % (auto) 0.5 % (0.0-2.0); Eosinophils # (auto) 0.1 10 ^3/uL (0-0.8); Eosinophils % (auto) 1.1 % (0.0-7.0); Hemoglobin 14.4 g/dL (13.5-17.5); Lymphocytes # (auto) 2.5 10 ^3/uL (0.4-5.4); Lymphocytes % (auto) 31.8 % (10.0-50.0); Mean Corpuscular Hemoglobin 29.7 pg (28.0-32.0); Mean Corpuscular Hgb Conc. 32.8 g/dL (32.0-36.0); Mean Corpuscular Volume 90.5 fL (80.0-100.0); Monocytes # (auto) 0.6 10 ^3/uL (0-1.3); Neutrophils # (auto) 4.5 10 ^3/uL (1.6-8.6); Neutrophils % (auto) 58.6 % (37.0-80.0); Nucleated Red Blood Cells % 0.2 %; Platelet Count (auto) 214 10^3/uL (140-450); Red Blood Cells 4.86 10^6/uL (4.5-5.90); Red Cell Distribution Width 13.4 % (11.8-14.3); White Blood Cell 7.7 10^3/uL (4.4-10.8)
[2024-08-29 09:04] LABS: Potassium 3.5 mmol/L (3.5-5.1); Sodium 144 mmol/L (136-145)
--- NOTE | 2024-08-29 09:04 | ED.PDOC ---
HPI Comments This is a 74-year-old male who comes in with chief complaint of chest pain since last night. The patient states that the pain started last night and lasted for approximately 10-15 minutes. He then called 911 and the dispatcher told him to take nitroglycerin under his tongue. The patient then tried to go back to sleep but the pain seemed to persist. He describes it as somewhat pressure-like and radiating to the left arm. The patient states that the pain is an 8/10. There has been no shortness a breath with the patient was complaining of some nausea. He states that the chest pain feels somewhat similar to his previous [place]. he was able to ambulate into the emergency department's without any difficulty. Chief Complaint: Chest Pain Time Seen by MD: 08:27 Primary Care Provider: UNKNOWN Reviewed Notes: Nurses Notes, Medications, Allergies (Allergies to morphine and erythromycin) Allergies: Coded Allergies: Egg Yolk (Verified Allergy, Unknown, RASH, 11/29/22) ITCHING FIRST Erythromycin (Verified Allergy, Unknown, 11/29/22) Morphine (Verified Allergy, Unknown, 11/29/22) Home Meds Reported Medications Scopolamine (Transderm-Scop) 1 Mg/3 Days Dis, 1 MG TD, DIS 11/29/22 Sildenafil Citrate (Viagra) 100 Mg Tab, 1 TAB PO DAILYP, #6 TAB 11 Refills 11/29/22 Rosuvastatin Calcium (Crestor) 40 Mg Tab, 1 TAB PO DAILY, #30 TAB 5 Refills 11/29/22 Hydromorphone Hcl (Dilaudid) 2 Mg Tab, 4 MG PO Q4HPRN PRN for PAIN SCALE 7 THRU 10, TAB 11/29/22 Ondansetron Odt 4MG Tab (ZOFRAN PO) 4 Mg Tb, 4 MG PO Q6HPRN PRN for NAUSEA / VOMITING, TAB ODT TAB-DISSOLVE IN MOUTH, THEN SWALLOW 11/29/22 Quetiapine Fumerate (Seroquel) 50 Mg Tab, 100 MG PO for 30 Days, MG 11/29/22 Arginine (L-Arginine) 500 Mg Cap, 500 MG PO DAILY, CAP 11/29/22 Hydromorphone Hcl (Hydromorphone Hcl) 1 Mg/Ml Inj, 4 MG Q24HR for CHRONIC PAIN 08/15/21 Hydrocodone-Acetaminophen (Hydrocodone Bitartrate/AC 10-325 mg) 1 Tab Tab, 1 TAB PO Q4HPRN PRN for CHRONIC BACK PAIN 08/15/21 Erythromycin (Erythromycin) 5 Mg/Gm Oin, 1 APPLIC OP DAILY for EYE INFECTION 08/15/21 Aspirin (Aspir-81) 81 Mg Tab, 1 TAB PO DAILY for CORONARY ARTERY DISEASE 08/15/21 Hydromorphone Hcl (Hydromorphone Hcl) 4 Mg Tab, 1 TAB PO Q4HPRN PRN for CHRONIC BACK PAIN 01/02/20 Lansoprazole (Lansoprazole) 30 Mg Cap, 1 CAP PO DAILY@BREAKFAST for GASTRIC ULCER 01/02/20 Alprazolam (Xanax) 1 Mg Tab, 1 TAB PO TID PRN for ANXIETY 06/12/17 Vortioxetine Hydrobromide (Trintellix) 10 Mg Tab, 2 TAB PO QAM for ANXIETY 06/12/17 Atenolol (Atenolol) 25 Mg Tab, 1 MG PO QAM for HYPERTENSION 06/12/17 Clopidogrel Bisulfate (Plavix) 75 Mg Tab, 75 MG PO QAM for CORONARY ARTERY DISEASE 10/17/16 Levothyroxine Sodium (Levothyroxine Sodium) 100 Mcg Tab, 1 TAB PO QAM for HYPOTHYROIDISM 06/01/15 Nitroglycerin (NTROSTAT SUBLINGUAL) 0.4 Mg Sl, 1 TAB SL PRN PRN for FOR CHEST PAIN *MAY REPEAT EVERY 5 MINUTES X 3 TOTAL IF NO RELIEF, INITIATE ANALGESIC THERAPY. NOTIFY PHYSICIAN *Do not crush. 06/01/15 Information Source: Patient Mode of Arrival: Ambulatory Severity: Moderate Timing: Hours Duration: Since onset Prehospital treatment: NTG Location: Chest (L) Radiation: Arm (L) Quality: Squeezing, Pressure Onset: At Rest Cardiac Risk Factors: Family History, Hyperlipidemia, HTN PE Risk Factors: None History of: Similar pain in past, [place], Angina Modifying Factors: Nothing Associated Signs and Symptoms: N/V (Nausea but no vomiting) Past Medical History PAST MEDICAL HISTORY: CAD, CHF, High Lipids, HTN, [place], Thyroid Surgical History: Appendectomy, CABG, Cholecystectomy, Hernia Repair, PTCA Surgical History (Other): Right knee surgery, back surgery Family History Family History: Family hx of heart los Social History Smoker: Non-Smoker Alcohol: Denies ETOH Use Drugs: Denies Drug Use Lives In: Home Constitutional: denies: chills, diaphoresis, fatigue, fever, malaise, sweats, weakness, others EENTM: denies: blurred vision, double vision, ear bleeding, ear discharge, ear drainage, ear pain, ear ringing, eye pain, eye redness, hearing loss, mouth pain, mouth swelling, nasal discharge, nose bleeding, nose congestion, nose pain, photophobia, tearing, throat pain, throat swelling, voice changes, others Respiratory: denies: cough, hemoptysis, orthopnea, SOB at rest, shortness of breath, SOB with excertion, stridor, wheezing, others Cardiovascular: reports: chest pain; denies: dizzy spells, diaphoresis, Dyspnea on exertion, edema, irregular heart beat, left arm pain, lightheadedness, palpitations, PND, syncope, others Gastrointestinal: reports: nausea; denies: abdomen distended, abdominal pain, blood streaked bowels, constipated, diarrhea, dysphagia, difficulty swallowing, hematemesis, melena, poor appetite, poor fluid intake, rectal bleeding, rectal pain, vomiting, others Genitourinary: denies: burning, dysuria, flank pain, frequency, hematuria, incontinence, penile discharge, penile sore, pain, testicle pain, testicle swelling, urgency, others Neurological: denies: dizziness, fainting, headache, left sided numbness, left sided weakness, numbness, paresthesia, pre-existing deficit, right sided numbness, right sided weakness, seizure, speech problems, tingling, tremors, weakness, others Musculoskeletal: denies: back pain, gout, joint pain, joint swelling, muscle pain, muscle stiffness, neck pain, others Integumetry: denies: bruises, change in color, change in hair/nails, dryness, laceration, lesions, lumps, rash, wounds, others Allergic/Immunocompromised: denies: Difficulty Healing, Frequent Infections, Hives, Itching, others Hematologic/Lymphatic: denies: anemia, blood clots, easy bleeding, easy bruising, swollen glands, others Endocrine: denies: excessive hunger, excessive sweating, excessive thirst, excessive urination, flushing, intolerance to cold, intolerance to heat, unexplained weight gain, unexplained weight loss, others Psychiatric: denies: anxiety, bipolar disorder, depression, hopeless, panic disorder, schizophrenia, sleepless, suicidal, others Physical Exam General Appearance: Moderate Distress HEENT: Normal ENT Inspection, Pharynx Normal, TMs Normal Neck: Full Range of Motion, Non-Tender, Normal, Normal Inspection Respiratory: Chest Non-Tender, Lungs Clear, No Accessory Muscle Use, No Respi ratory Distress, Normal Breath Sounds Cardiovascular: No Edema, No JVD, No Murmur, No Gallop, Normal Peripheral Pulses, Regular Rate/Rhythm Breast Exam: Deferred Gastrointestinal: No Organomegaly, Non Tender, No Pulsatile Mass, Normal Bowel Sounds, Soft Genitalia: Deferred Pelvic: Deferred Rectal: Deferred Extremities: No calf tenderness, Normal capillary refill, Normal inspection, Normal range of motion, Non-tender, No pedal edema Musculoskeletal : Apperance: Normal Neurologic: Alert, 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 Was a procedure done?: No CP Differential Dx Differential Diagnosis: A-fib, A-Flutter, Angina, [place], Pulmonary Embolus Differential Diagnosis: CHF Differential Diagnosis: Pericarditis X-Ray, Labs, Meds, VS Vital Signs Date Time Temp Pulse Resp B/P (MAP) Pulse Ox O2 Delivery O2 Flow Rate FiO2 08/29/24 09:30 75 08/29/24 09:04 72 08/29/24 08:35 72 08/29/24 08:27 98.0 70 18 147/72 (97) 97 98.0 Lab Test 08/29/24 08:43 Range/Units White Blood Count 7.7 4.4-10.8 10^3/uL Red Blood Count 4.86 4.5-5.90 10^6/uL Hemoglobin 14.4 13.5-17.5 g/dL Hematocrit 44.0 41.0-53.0 % Mean Corpuscular Volume 90.5 80.0-100.0 fL Mean Corpuscular Hemoglobin 29.7 28.0-32.0 pg Mean Corpuscular Hemoglobin Concent 32.8 32.0-36.0 g/dL Red Cell Distribution Width 13.4 11.8-14.3 % Platelet Count 214 140-450 10^3/uL Mean Platelet Volume 8.8 6.9-10.8 fL Neutrophils (%) (Auto) 58.6 37.0-80.0 % Lymphocytes (%) (Auto) 31.8 10.0-50.0 % Monocytes (%) (Auto) 8.0 0.0-12.0 % Eosinophils (%) (Auto) 1.1 0.0-7.0 % Basophils (%) (Auto) 0.5 0.0-2.0 % Neutrophils # (Auto) 4.5 1.6-8.6 10 ^3/uL Lymphocytes # (Auto) 2.5 0.4-5.4 10 ^3/uL Monocytes # (Auto) 0.6 0-1.3 10 ^3/uL Eosinophils # (Auto) 0.1 0-0.8 10 ^3/uL Basophils # (Auto) 0 0-0.2 10 ^3/uL Nucleated Red Blood Cells 0.2 % Sodium Level 144 136-145 mmol/L Potassium Level 3.5 3.5-5.1 mmol/L Chloride Level 107 98-107 mmol/L Carbon Dioxide Level 28 20-31 mmol/L Anion Gap 9 5-15 Blood Urea Nitrogen 12 9-23 mg/dL Creatinine 1.12 0.700-1.30 mg/dL Glomerular Filtration Rate Calc 69 >90 mL/min BUN/Creatinine Ratio 10.7 10.0-20.0 Serum Glucose 98 74-106 mg/dL Calcium Level 9.5 8.7-10.4 mg/dL Troponin I High Sensitivity 7 </=54 ng/L IV Hep-Lock was established The patient was given aspirin here in the emergency department's IMPRESSION: No acute intrathoracic abnormality. The patient's CBC and chemistry panel are within normal limits The troponin level is within normal limits. At this time, the patient is being admitted to the hospitalist The patient understands and agrees with the management Images Reviewed?: Images reviewed and evaluated by me Time of 1ST Reevaluation: 09:04 Reevaluation 1ST: Unchanged Patient Education/Counseling: Diagnosis, Treatment, Prognosis Family Education/Counseling: No Family Present Departure 1 Departure Time of Disposition: 09:42 Impression: Primary Impression: Acute coronary syndrome Disposition: ADMITTED INPATIENT Admit to: Tele Condition: Fair Critical Care Note Critical Care Time?: Yes (45 min-critical care time only) Stability Stability form required: Yes Unstable for transfer: Telemetry monitoring (Telemetry monitoring required), ED Physician Assesment (Clinical assesment) Heart Score Heart Score: Heart Score Response (Comments) Value History Moderate Suspicious 1 EKG Repolarization Disturb 1 Age >65 2 Risk Factors >3 or Hx ASHD 2 Troponin Normal limit 0 Total 6 I personally scribed for ROBER KERN MD ([email or web address]) on 08/29/24 at 09:26. Electronically submitted by Duc Pedraza ([email or web address]). ROBER KERN MD August 29, 2024 09:04
[2024-08-29 09:05] LABS: Anion Gap 9 (5-15); Calcium 9.5 mg/dL (8.7-10.4); Carbon Dioxide 28 mmol/L (20-31)
[2024-08-29 09:10] LABS: BUN/Creatinine Ratio 10.7 (10.0-20.0); Blood Urea Nitrogen 12 mg/dL (9-23); Glucose 98 mg/dL (74-106)
--- NOTE | 2024-08-29 09:12 | DVH ---
XY CHEST TWO VIEWS ROUTINE, HISTORY: CP COMPARISON: XY CHEST TWO VIEWS ROUTINE on DOS: 07/13/23, XY CHEST TWO VIEWS ROUTINE on DOS: 11/29/22, RS HD2 on DOS: 09/23/21 XY CHEST TWO VIEWS ROUTINE on DOS: 07/13/23, XY CHEST TWO VIEWS ROUTINE on DOS: 11/29/22, [email or web address] on DOS: 09/23/21 TECHNICAL DATA: 2 view of the chest was obtained. FINDINGS: Lines and tubes: None Cardiomediastinal silhouette: normal Pulmonary vasculature: normal Lung expansion: normal Lung airspace: normal Lung interstitium: normal Pleura: normal Pneumothorax: no Bones: Unremarkable Other: Sternotomy wires and surgical clips are seen. IMPRESSION: No acute intrathoracic abnormality.
[2024-08-29 09:29] LABS: Chloride 107 mmol/L (98-107)
[2024-08-29 09:45] VITALS: PULSE 75; RESP 10; TEMP 97.8; O2SAT 96
[2024-08-29] MEDS: ASPirin 81 mg TAB PO ONE (09:48)
[2024-08-29 12:00] VITALS: BP 119/60; PULSE 67; RESP 15; O2SAT 93
[2024-08-29 13:02] LABS: Urine Bacteria FEW /hpf (None Seen); Urine Blood Negative /uL (Negative); Urine Clarity Clear (Clear); Urine Color Yellow (Yellow); Urine Mucus FEW (None Seen); Urine Protein, UAD TRACE (Negative); Urine Specific Gravity 1.028 (1.001-1.035); Urine Squamous Epithelial Cell FEW /hpf (<5); Urine Urobilinogen 2 mg/dL (Negative); Urine WBC 1 /HPF (0-3); Urine pH 5.5 (5.0-9.0)
[2024-08-29] MEDS ORDERED: MORPHINE SULFATE 4 MG/ML SYR/VIAL IV PRN (14:30)
[2024-08-29] MEDS ORDERED: MORPHINE SULFATE INJ 2 MG/ml SYRG IV PRN (14:30)
[2024-08-29] MEDS ORDERED: NITROGLYCERIN 0.4 MG SL TAB SL PRN ×2 (14:30)
[2024-08-29] MEDS ORDERED: ACETAMINOPHEN 325 MG TAB PO PRN (14:30)
[2024-08-29] MEDS ORDERED: ONDANSETRON HCL 4 MG/2 ML VIAL IV PRN (14:30)
--- NOTE | 2024-08-29 14:42 | DVHHP2 ---
History of Present Illness Reason for Visit: Chest pain History of Present Illness Tom Childress is a 74-year-old male with past medical history of CAD, mi, CABG, status post PTCA x8 with the most recent in 2023, hypertension, hyperlipidemia, diabetes type 2, hypothyroidism, CHF, appendectomy, cholecystectomy, right knee surgery, back surgery with chronic back pain, neck surgery, and hernia repair who presents to the ED with chest pain that started last night. Patient reports that the chest pain radiates to his left arm is 8/10 pressure-like and constant. He states that nitro makes the pain better. He states that there are no triggering factors. At the chair side Charleen is present. Patient denies any shortness of breath, fever, chills, lightheadedness, weakness, dizziness, recent trauma or injury, recent travels, recent sick contacts, abdominal pain, nausea, vomiting, diarrhea, or wheezing. Cardiovascular: CAD, CHF, HTN, [place], hyperipidemia Endocrine: Diabetes, Hypothyroidism Past Medical History Chronic back pain Past Surgical History: Appendectomy, Cholecystectomy, CABG, Hernia Repair, Other (PTCA x8, right knee surgery, back surgery, and neck surgery) Family History: Other (Mom and dad with heart disease) Smoke: No ALCOHOL: none Drugs: None Lives: with Family Domestic Violence: Neg Review of Systems Cardiovascular: Chest Pain Musculoskeletal: arm pain Allergies: Coded Allergies: Egg Yolk (Verified Allergy, Unknown, RASH, 11/29/22) ITCHING FIRST Erythromycin (Verified Allergy, Unknown, 11/29/22) Morphine (Verified Allergy, Unknown, 11/29/22) Medications Current Medications Medications Dose Ordered Sig/Hailee Route Start Time Stop Time Status Last Admin Dose Admin Aspirin 81 mg DAILY PO 08/30/24 10:00 UNV Atorvastatin Calcium 40 mg HS PO 08/29/24 22:00 UNV Morphine Sulfate 2 mg Q30MP PRN IV 08/29/24 14:30 UNV Acetaminophen 650 mg Q6HP PRN PO 08/29/24 14:30 UNV Nitroglycerin 0.4 mg Q5MINP PRN SL 08/29/24 14:30 UNV Ondansetron HCl 4 mg Q4HP PRN IV 08/29/24 14:30 UNV Nitroglycerin 0.4 mg Q5MINP PRN SL 08/29/24 14:30 UNV Morphine Sulfate 2 mg Q30M PRN IV 08/29/24 14:30 UNV Exam Vital Signs Vital Signs Date Time Temp Pulse Resp B/P (MAP) Pulse Ox O2 Delivery O2 Flow Rate FiO2 08/29/24 12:00 67 15 119/60 (79) 93 08/29/24 09:45 97.8 97.8 08/29/24 09:45 Room Air* 0 21 General Appearance: Alert, Oriented X3, Cooperative, No acute distress HEENT: Atraumatic, PERRLA, EOMI, Mucous membr. moist/pink Respiratory: Clear to auscultation, Normal air movement Cardiovascular: Regular rate, Normal S1, Normal S2, No murmurs Abdominal: Normal bowel sounds, Soft Extremities: No clubbing, No cyanosis, No edema, Normal pulses Skin: No significant lesion Neuro: Normal gait, Normal speech, Strength at 5/5 X4 ext, Normal tone, Sensation intact Psych/Mental Status: Mental status NL, Mood NL Labs/Xrays Labs Test 08/29/24 11:45 08/29/24 09:53 08/29/24 09:40 08/29/24 08:43 Range/Units Troponin I High Sensitivity 7 </=54 ng/L Urine Color Yellow Yellow Urine Clarity Clear Clear Urine pH 5.5 5.0-9.0 Urine Specific [place] 1.028 1.001-1.035 Urine Protein Trace H Negative Urine Ketones 1+ H Negative Urine Blood Negative Negative /uL Urine Nitrite Negative Negative Urine Bilirubin Negative Negative Urine Urobilinogen 2 H Negative mg/dL Urine Leukocyte Esterase Negative Negative /uL Urine RBC 1 0 - 3 /hpf Urine Microscopic WBC 1 0-3 /HPF Urine Squamous Epithelial Cells Few <5 /hpf Urine Bacteria Few H None Seen /hpf Urine Mucus Few None Seen Urine Glucose Normal Normal mg/dL White Blood Count 7.7 4.4-10.8 10^3/uL Red Blood Count 4.86 4.5-5.90 10^6/uL Hemoglobin 14.4 13.5-17.5 g/dL Hematocrit 44.0 41.0-53.0 % Mean Corpuscular Volume 90.5 80.0-100.0 fL Mean Corpuscular Hemoglobin 29.7 28.0-32.0 pg Mean Corpuscular Hemoglobin Concent 32.8 32.0-36.0 g/dL Red Cell Distribution Width 13.4 11.8-14.3 % Platelet Count 214 140-450 10^3/uL Mean Platelet Volume 8.8 6.9-10.8 fL Neutrophils (%) (Auto) 58.6 37.0-80.0 % Lymphocytes (%) (Auto) 31.8 10.0-50.0 % Monocytes (%) (Auto) 8.0 0.0-12.0 % Eosinophils (%) (Auto) 1.1 0.0-7.0 % Basophils (%) (Auto) 0.5 0.0-2.0 % Neutrophils # (Auto) 4.5 1.6-8.6 10 ^3/uL Lymphocytes # (Auto) 2.5 0.4-5.4 10 ^3/uL Monocytes # (Auto) 0.6 0-1.3 10 ^3/uL Eosinophils # (Auto) 0.1 0-0.8 10 ^3/uL Basophils # (Auto) 0 0-0.2 10 ^3/uL Nucleated Red Blood Cells 0.2 % Sodium Level 144 136-145 mmol/L Potassium Level 3.5 3.5-5.1 mmol/L Chloride Level 107 98-107 mmol/L Carbon Dioxide Level 28 20-31 mmol/L Anion Gap 9 5-15 Blood Urea Nitrogen 12 9-23 mg/dL Creatinine 1.12 0.700-1.30 mg/dL Glomerular Filtration Rate Calc 69 >90 mL/min BUN/Creatinine Ratio 10.7 10.0-20.0 Serum Glucose 98 74-106 mg/dL Calcium Level 9.5 8.7-10.4 mg/dL XY CHEST TWO VIEWS ROUTINE, HISTORY: CP COMPARISON: XY CHEST TWO VIEWS ROUTINE on DOS: 07/13/23, XY CHEST TWO VIEWS ROUTINE on DOS: 11/29/22, RSHD2 on DOS: 09/23/21 XY CHEST TWO VIEWS ROUTINE on DOS: 07/13/23, XY CHEST TWO VIEWS ROUTINE on DOS: 11/29/22, [email or web address] on DOS: 09/23/21 TECHNICAL DATA: 2 view of the chest was obtained. FINDINGS: Lines and tubes: None Cardiomediastinal silhouette: normal Pulmonary vasculature: normal Lung expansion: normal Lung airspace: normal Lung interstitium: normal Pleura: normal Pneumothorax: no Bones: Unremarkable Other: Sternotomy wires and surgical clips are seen. IMPRESSION: No acute intrathoracic abnormality. Assessment/Plan Assessment/Plan Assessment Chest pain rule out ACS History of CAD History of [place] History of CABG status post PTCA x8 recent one at [facility] in 2023 History of hyperlipidemia History of hypothyroidism History of diabetes type 2 History of CHF History of appendectomy History of cholecystectomy History of hernia repair History of right knee surgery History of back surgery with chronic back pain History of neck surgery Plan Admit to tele Antiemetics Pain management Aspirin Statins UA Chest x-ray noted Troponin negative x3 EKG Echo ordered TSH Lipid panel A1c UDS Diet Home medications reconciled DVT prophylaxis-Plavix, continue patient home medication PUD prophylaxis-not indicated no history of GERD or GI bleed Discussed plan of care with patient, patient's , and nurse Cardiology was going to be consulted however patient signed AMA ISS and Accu-Cheks however patient signed AMA Plan discussed with: Patient, Spouse My Orders Orders - 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 Procedure Category Date Status Time Admit ADMIT 08/29/24 Transmitted 14:20 Code Status CODE 08/29/24 Transmitted 14:20 Vital Signs ROBERT 08/29/24 In Process 14:20 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 ROBERT 08/29/24 In Process 14:20 Cardiac DIET 08/29/24 Transmitted Diet-2gna,Lofat,Lochol Dinner Aspirin Tablet PHA 08/30/24 Logged 10:00 Atorvastatin (Lipitor) PHA 08/29/24 Logged 22:00 Morphine Sulfate PHA 08/29/24 Logged Injection 14:30 Acetaminophen Tablet PHA 08/29/24 Logged (Tylenol Tablet) 14:30 Complete Blood Count LAB 08/30/24 Verified 04:00 Basic Metabolic Panel LAB 08/30/24 Verified 04:00 Magnesium LAB 08/30/24 Verified 04:00 Echo 2d Mode Cardiac US 08/29/24 Logged DOP 14:20 Nitroglycerin PHA 08/29/24 Logged Sublingual (Ntrostat 14:30 Ondansetron Hcl PHA 08/29/24 Logged (Zofran) 14:30 Electrocardigram EKG 08/30/24 Logged 04:00 Cardiac ROBERT 08/29/24 In Process Rehabilitation - Outpa Nitroglycerin PHA 08/29/24 Logged Sublingual (Ntrostat 14:30 Morphine Sulfate PHA 08/29/24 Logged Injection 14:30 Stat Ekg For Chest ROBERT 08/29/24 In Process Pain 14:20 Notify Of Changes ROBERT 08/29/24 In Process From Base 14:20 Short Goods Drier For ROBERT 08/29/24 In Process 24 Hours 14:20 Emergency Dysrhythmia ROBERT 08/29/24 In Process Protocol 14:20 Rhythm Strips Once ROBERT 08/29/24 In Process Every Shift 14:20 Oxygen By Nasal RT 08/29/24 Transmitted Cannula 14:20 Thyroid Stimulating LAB 08/29/24 In Process Hormone 14:25 Lipid Panel LAB 08/29/24 In Process 14:25 Drug Screen LAB 08/29/24 In Process 14:25 Hemoglobin A1c LAB 08/29/24 In Process 14:25 Aspirin Enteric PHA 08/30/24 Transmitted Coated Tablet 10:00 Atenolol Tablet PHA 08/30/24 Transmitted (Tenormin Tablet) 07:00 Clopidogrel Bisulfate PHA 08/30/24 Transmitted (Plavix) 07:00 Hydrocodone-Acet PHA 08/29/24 Transmitted 10/325mg Tab ([place] 14:45 Levothyroxine Tablet PHA 08/30/24 Transmitted (Synthroid Tablet) 07:00 (Nf) Alprazolam PHA 08/29/24 Transmitted (Xanax) 14:45 (Nf) Arginine PHA 08/30/24 Transmitted (L-Arginine) 10:00 (Nf) Hydromorphone Hcl PHA 08/29/24 Transmitted 14:45 (Nf) Lansoprazole PHA 08/30/24 Transmitted 08:00 (Nf) Rosuvastatin PHA 08/30/24 Transmitted Calcium (Crestor) 10:00 (Nf) Sildenafil PHA 08/30/24 Transmitted Citrate (Viagra) 10:00 (Nf) Vortioxetine PHA 08/30/24 Transmitted Hydrobromide (Trintell 07:00 Quetiapine Fumarate PHA 08/29/24 Transmitted Tablet (Seroquel Tab 22:00 Date of Service: August 29, 2024 Billing Provider: WIL NGUYEN Common Visit Codes: [id number] INP/OBS CARE (HIGH) WIL NGUYEN August 29, 2024 14:42
[2024-08-29] MEDS ORDERED: PATIENTS OWN MEDICATION (Alprazolam (Xanax) 1 TAB) PO PRN (14:45)
[2024-08-29] MEDS ORDERED: HYDROcodone-ACET 10/325MG TAB PO PRN (14:45)
[2024-08-29] MEDS ORDERED: HYDROMORPHONE HCL PO PRN (14:45)
[2024-08-29 15:06] LABS: Triglycerides 69 mg/dL (< 150)
[2024-08-29 15:07] LABS: LDL Cholesterol 37 mg/dL (< 100)
[2024-08-29 15:08] LABS: Cholesterol 90 mg/dL (< 200)
[2024-08-29 15:09] LABS: HDL Cholesterol 39 mg/dL (40-59)
--- NOTE | 2024-08-29 19:05 | ECG ---
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
--- NOTE | 2024-08-29 19:06 | ECG ---
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
[2024-08-29] MEDS ORDERED: ATORVASTATIN 20 MG TAB PO SCH (22:00)
[2024-08-29] MEDS ORDERED: QUEtiapine FUMARATE 25 MG TAB PO SCH (22:00)
[2024-08-30] MEDS ORDERED: VORTIOXETINE HYDROBROMIDE PO SCH (07:00)
[2024-08-30] MEDS ORDERED: ATENOLOL 25 MG TAB PO SCH (07:00)
[2024-08-30] MEDS ORDERED: CLOPIDOGREL BISULFATE 75 MG TAB PO SCH (07:00)
[2024-08-30] MEDS ORDERED: LEVOTHYROXINE SODIUM 100 MCG TAB PO SCH (07:00)
[2024-08-30] MEDS ORDERED: LANSOPRAZOLE PO SCH (08:00)
[2024-08-30] MEDS ORDERED: PATIENTS OWN MEDICATION (Rosuvastatin Calcium (Crestor) 1 TAB) PO SCH (10:00)
[2024-08-30] MEDS ORDERED: PATIENTS OWN MEDICATION (Sildenafil Citrate (Viagra) 1 TAB) PO SCH (10:00)
[2024-08-30] MEDS ORDERED: ASPirin 81 mg TAB PO SCH (10:00)
[2024-08-30] MEDS ORDERED: ASPirin-EC 81 mg tab PO SCH (10:00)
[2024-08-30] MEDS ORDERED: ARGININE 500 MG PO SCH (10:00)
== END 2024-08-29 14:41 | disposition left against medical advice (07) | DRG 311 ==
LOC: ER 08:23 → OVERFLOW 14:20
DX: I24.9 Acute ischemic heart disease, unspecified (principal); I11.0 Hypertensive heart disease with heart failure; I25.10 Atherosclerotic heart disease of native coronary artery without angina pectoris; I50.9 Heart failure, unspecified; Z53.29 Procedure and treatment not carried out because of patient's decision for other reasons; E03.9 Hypothyroidism, unspecified; G89.29 Other chronic pain; E11.9 Type 2 diabetes mellitus without complications; E78.5 Hyperlipidemia, unspecified; Z88.5 Allergy status to narcotic agent; Z88.1 Allergy status to other antibiotic agents; Z91.012 Allergy to eggs; Z79.2 Long term (current) use of antibiotics; Z79.899 Other long term (current) drug therapy; I25.2 Old myocardial infarction; Z90.49 Acquired absence of other specified parts of digestive tract; Z95.1 Presence of aortocoronary bypass graft; Z98.61 Coronary angioplasty status; Z68.24 Body mass index [BMI] 24.0-24.9, adult
CPT/HCPCS: 36415; 71046; 80048; 80061; 81001; 83036; 84443; 84484; 85025; 93005; 99291; G0378

== ENCOUNTER → 2024-09-17 | Outpatient (CLI) | payer MEDICARE, OTHER | END | disposition home or self-care (01) | LOC: Rad HDHVI 14:51 | PROVIDERS: ATTEND Internal Medicine Cardiovascular Disease | DX: I08.1 Rheumatic disorders of both mitral and tricuspid valves (principal); I11.9 Hypertensive heart disease without heart failure | CPT/HCPCS: 93306 ==

== ENCOUNTER 2024-09-23 12:41 | Outpatient (CLI) | payer MEDICARE, OTHER ==
[~2024-09-23] VITALS: Ht 172.7 cm; Wt 78.0 kg
[2024-09-23] MEDS ORDERED: ADENOSINE 90 MG/30 ML INJ IV ONE (13:48)
[2024-09-23] MEDS ORDERED: ADENOSINE 66 MG in GIVE UN-DILUTED 0 ML IV ONE (15:00)
== END 2024-09-23 17:00 | disposition home or self-care (01) ==
LOC: Rad HDHVI 12:41
PROVIDERS: ATTEND Internal Medicine Cardiovascular Disease
DX: I49.1 Atrial premature depolarization (principal); I49.3 Ventricular premature depolarization; I45.10 Unspecified right bundle-branch block; I25.10 Atherosclerotic heart disease of native coronary artery without angina pectoris; I10 Essential (primary) hypertension; E78.00 Pure hypercholesterolemia, unspecified; R07.89 Other chest pain; Z95.1 Presence of aortocoronary bypass graft; Z82.49 Family history of ischemic heart disease and other diseases of the circulatory system; Z79.82 Long term (current) use of aspirin
CPT/HCPCS: 78452; 93017; A9500; J0153

== ENCOUNTER 2024-10-09 16:30 | Emergency (ER) | payer MEDICARE, OTHER ==
[~2024-10-09] VITALS: Ht 172.7 cm; Wt 84.3 kg
[2024-10-09 16:36] VITALS: BP 132/71; RESP 18; TEMP 98.1; O2SAT 92
--- NOTE | 2024-10-09 16:45 | ED.PDOC ---
HPI Comments A 74 year old male presents to the ED c/o chest pain. Patient states he has been experiencing chest pain that started today when he woke up. Patient describes his pain as a tightness sensation and rates the severity of his pain at this time as a 6/10. Patient reports he has also had a productive cough with green colored phlegm. Patient notes he has a history of an [place] and 8 cardiac stents in the past. Patient denies fever, SOB, abdominal pain, nausea, vomiting, diarrhea, headache, dizziness. No other symptoms or modifying factors reported at this time. Patient is alert and oriented x4 and has a stable gait. Time Seen by MD: 16:34 Primary Care Provider: UNKNOWN Reviewed Notes: Nurses Notes, Medications, Allergies Allergies: Coded Allergies: Egg Yolk (Verified Allergy, Unknown, RASH, 11/29/22) ITCHING FIRST Erythromycin (Verified Allergy, Unknown, 11/29/22) Morphine (Verified Allergy, Unknown, 11/29/22) Home Meds Reported Medications Scopolamine (Transderm-Scop) 1 Mg/3 Days Dis, 1 MG TD, DIS 11/29/22 Sildenafil Citrate (Viagra) 100 Mg Tab, 1 TAB PO DAILYP, #6 TAB 11 Refills 11/29/22 Rosuvastatin Calcium (Crestor) 40 Mg Tab, 1 TAB PO DAILY, #30 TAB 5 Refills 11/29/22 Hydromorphone Hcl (Dilaudid) 2 Mg Tab, 4 MG PO Q4HPRN PRN for PAIN SCALE 7 THRU 10, TAB 11/29/22 Ondansetron Odt 4MG Tab (ZOFRAN PO) 4 Mg Tb, 4 MG PO Q6HPRN PRN for NAUSEA / VOMITING, TAB ODT TAB-DISSOLVE IN MOUTH, THEN SWALLOW 11/29/22 Quetiapine Fumerate (Seroquel) 50 Mg Tab, 100 MG PO for 30 Days, MG 11/29/22 Arginine (L-Arginine) 500 Mg Cap, 500 MG PO DAILY, CAP 11/29/22 Hydromorphone Hcl (Hydromorphone Hcl) 1 Mg/Ml Inj, 4 MG Q24HR for CHRONIC PAIN 08/15/21 Hydrocodone-Acetaminophen (Hydrocodone Bitartrate/AC 10-325 mg) 1 Tab Tab, 1 TAB PO Q4HPRN PRN for CHRONIC BACK PAIN 08/15/21 Erythromycin (Erythromycin) 5 Mg/Gm Oin, 1 APPLIC OP DAILY for EYE INFECTION 08/15/21 Aspirin (Aspir-81) 81 Mg Tab, 1 TAB PO DAILY for CORONARY ARTERY DISEASE 08/15/21 Hydromorphone Hcl (Hydromorphone Hcl) 4 Mg Tab, 1 TAB PO Q4HPRN PRN for CHRONIC BACK PAIN 01/02/20 Lansoprazole (Lansoprazole) 30 Mg Cap, 1 CAP PO DAILY@BREAKFAST for GASTRIC ULCER 01/02/20 Alprazolam (Xanax) 1 Mg Tab, 1 TAB PO TID PRN for ANXIETY 06/12/17 Vortioxetine Hydrobromide (Trintellix) 10 Mg Tab, 2 TAB PO QAM for ANXIETY 06/12/17 Atenolol (Atenolol) 25 Mg Tab, 1 MG PO QAM for HYPERTENSION 06/12/17 Clopidogrel Bisulfate (Plavix) 75 Mg Tab, 75 MG PO QAM for CORONARY ARTERY DISEASE 10/17/16 Levothyroxine Sodium (Levothyroxine Sodium) 100 Mcg Tab, 1 TAB PO QAM for HYPOTHYROIDISM 06/01/15 Nitroglycerin (NTROSTAT SUBLINGUAL) 0.4 Mg Sl, 1 TAB SL PRN PRN for FOR CHEST PAIN *MAY REPEAT EVERY 5 MINUTES X 3 TOTAL IF NO RELIEF, INITIATE ANALGESIC THERAPY. NOTIFY PHYSICIAN *Do not crush. 06/01/15 Information Source: Patient Mode of Arrival: Ambulatory Severity: Moderate Timing: Hours Duration: Since onset, Hours Prehospital treatment: None Location: Substernal Radiation: No Radiation Quality: Tightness Onset: At Rest Cardiac Risk Factors: HTN PE Risk Factors: None History of: [place] Associated Signs and Symptoms: None Past Medical History PAST MEDICAL HISTORY: CAD, CHF, High Lipids, HTN, [place], Thyroid Surgical History: Appendectomy, CABG, Cholecystectomy, Hernia Repair, PTCA Family History Family History: Reviewed,noncontributory to illness, Family hx of heart los Social History Smoker: Non-Smoker Alcohol: Denies ETOH Use Drugs: Denies Drug Use Lives In: Home Constitutional: denies: chills, diaphoresis, fatigue, fever, malaise, sweats, weakness, others EENTM: denies: blurred vision, double vision, ear bleeding, ear discharge, ear drainage, ear pain, ear ringing, eye pain, eye redness, hearing loss, mouth pain, mouth swelling, nasal discharge, nose bleeding, nose congestion, nose pain, photophobia, tearing, throat pain, throat swelling, voice changes, others Respiratory: reports: cough; denies: hemoptysis, orthopnea, SOB at rest, shortness of breath, SOB with excertion, stridor, wheezing, others Cardiovascular: reports: chest pain; denies: dizzy spells, diaphoresis, Dyspnea on exertion, edema, irregular heart beat, left arm pain, lightheadedness, palpitations, PND, syncope, others Gastrointestinal: denies: abdomen distended, abdominal pain, blood streaked bowels, constipated, diarrhea, dysphagia, difficulty swallowing, hematemesis, melena, nausea, poor appetite, poor fluid intake, rectal bleeding, rectal pain, vomiting, others Genitourinary: denies: burning, dysuria, flank pain, frequency, hematuria, incontinence, penile discharge, penile sore, pain, testicle pain, testicle sw elling, urgency, others Neurological: denies: dizziness, fainting, headache, left sided numbness, left sided weakness, numbness, paresthesia, pre-existing deficit, right sided numbness, right sided weakness, seizure, speech problems, tingling, tremors, weakness, others Musculoskeletal: denies: back pain, gout, joint pain, joint swelling, muscle pain, muscle stiffness, neck pain, others Integumetry: denies: bruises, change in color, change in hair/nails, dryness, laceration, lesions, lumps, rash, wounds, others Allergic/Immunocompromised: denies: Difficulty Healing, Frequent Infections, Hives, Itching, others Hematologic/Lymphatic: denies: anemia, blood clots, easy bleeding, easy bruising, swollen glands, others Endocrine: denies: excessive hunger, excessive sweating, excessive thirst, excessive urination, flushing, intolerance to cold, intolerance to heat, unexplained weight gain, unexplained weight loss, others Psychiatric: denies: anxiety, bipolar disorder, depression, hopeless, panic disorder, schizophrenia, sleepless, suicidal, others All Other Systems: Reviewed and Negative Physical Exam General Appearance: No Apparent Distress, Normal HEENT: Normal ENT Inspection, Pharynx Normal, TMs Normal Neck: Full Range of Motion, Non-Tender, Normal, Normal Inspection Respiratory: Chest Non-Tender, Lungs Clear, No Accessory Muscle Use, No Respiratory Distress, Normal Breath Sounds Cardiovascular: No Edema, No JVD, No Murmur, No Gallop, Normal Peripheral Pulses, Regular Rate/Rhythm Breast Exam: Deferred Gastrointestinal: No Organomegaly, Non Tender, No Pulsatile Mass, Normal Bowel Sounds, Soft Genitalia: Deferred Pelvic: Deferred Rectal: Deferred Extremities: No calf tenderness, Normal capillary refill, Normal inspection, No rmal range of motion, Non-tender, No pedal edema Musculoskeletal : Apperance: Normal Neurologic: Alert, bundle wrapper II-XII nml as Tested, No Motor Deficits, Normal Affect, Normal Mood, No Sensory Deficits Cerebellar Function: Normal Reflexes: Normal Skin: Dry, Normal Color, Warm Lymphatic: No Adenopathy EKG EKG : Pulse Rate (adult): 102 Comments Sinus tachycardia at 102 BPM. Right bundle branch block. Was a procedure done? Was a procedure done?: No CP Differential Dx Differential Diagnosis: A-fib, Angina, Anxiety / Panic Attack, Heart Failure, [place] Differential Diagnosis: CHF, N/A Differential Diagnosis: Angina, Aortic dissection, Chest Wall Pain, Costochondritis, Esophageal reflux/spasm, Gastritis, Myocardial Infarction, Pericarditis, Pneumonia, Pneumothorax, Pulmonary Embolus X-Ray, Labs, Meds, VS Vital Signs Date Time Temp Pulse Resp B/P (MAP) Pulse Ox O2 Delivery O2 Flow Rate FiO2 10/09/24 16:45 102 Lab Test 10/09/24 16:42 Range/Units White Blood Count 8.0 4.4-10.8 10^3/uL Red Blood Count 4.40 L 4.5-5.90 10^6/uL Hemoglobin 12.9 L 13.5-17.5 g/dL Hematocrit 38.6 L 41.0-53.0 % Mean Corpuscular Volume 87.9 80.0-100.0 fL Mean Corpuscular Hemoglobin 29.4 28.0-32.0 pg Mean Corpuscular Hemoglobin Concent 33.4 32.0-36.0 g/dL Red Cell Distribution Width 13.9 11.8-14.3 % Platelet Count 190 140-450 10^3/uL Mean Platelet Volume 8.6 6.9-10.8 fL Neutrophils (%) (Auto) 55.9 37.0-80.0 % Lymphocytes (%) (Auto) 33.4 10.0-50.0 % Monocytes (%) (Auto) 8.5 0.0-12.0 % Eosinophils (%) (Auto) 1.8 0.0-7.0 % Basophils (%) (Auto) 0.4 0.0-2.0 % Neutrophils # (Auto) 4.5 1.6-8.6 10 ^3/uL Lymphocytes # (Auto) 2.7 0.4-5.4 10 ^3/uL Monocytes # (Auto) 0.7 0-1.3 10 ^3/uL Eosinophils # (Auto) 0.1 0-0.8 10 ^3/uL Basophils # (Auto) 0 0-0.2 10 ^3/uL Nucleated Red Blood Cells 0.0 % Sodium Level 147 H 136-145 mmol/L Potassium Level 4.4 3.5-5.1 mmol/L Chloride Level 109 H 98-107 mmol/L Carbon Dioxide Level 30 20-31 mmol/L Anion Gap 8 5-15 Blood Urea Nitrogen 8 L 9-23 mg/dL Creatinine 1.25 0.700-1.30 mg/dL Glomerular Filtration Rate Calc 60 >90 mL/min BUN/Creatinine Ratio Pending Serum Glucose 76 74-106 mg/dL Calcium Level 9.5 8.7-10.4 mg/dL Troponin I High Sensitivity 5 </=54 ng/L X-Ray, Labs, Meds, VS Comment External medical records reviewed: [None] Independent historians: [None] Social determinants of health: [None] Labs ordered: CBC, CMP, TROP X3 Reviewed and interpreted results: Radiology imaging ordered: XR Chest Treatments ordered: Aspirin 325mg PO, Nitroglycerin 0.4mg SL, Zofran 4mg IV Procedures performed: None Critical care time: None Images Reviewed?: Images reviewed and evaluated by me Time of 1ST Reevaluation: 17:27 Reevaluation 1ST: Improved Patient Education/Counseling: Diagnosis, Treatment, Prognosis, Need For Follow Up Family Education/Counseling: Diagnosis, Treatment Additional Information pt has know cardiac risk factors and known CAD. his chest pain is more severe and longer in duration compared with previous chest pains. pt has unstable angina. he will be admitted for cardiology evaluation Departure 1 Departure Time of Disposition: 17:28 Impression: Primary Impression: Unstable angina Disposition: 09 ADMITTED INPATIENT Admit to: Tele Condition: Serious Discharged With: Self Critical Care Note Critical Care Time?: Yes (55 min-critical care time only) Critical care comment: due to concerns for deterioration of patient's condition, the care required my highest level of attention and readiness. i assessed the patient's condition, reviewed relevant documents, communicated with medical personnel, ordered the proper tests and treatments, reassessed for results and response to treatments, spoke to family and consultants and formulated a plan of care Stability Stability form required: No Heart Score Heart Score: Heart Score Response (Comments) Value History Highly Suspicious 2 EKG Repolarization Disturb 1 Age >65 2 Risk Factors >3 or Hx ASHD 2 Troponin Normal limit 0 Total 7 I personally scribed for KRISTAL REYES MD ([employer]) on 10/09/24 at 16:45. Electronically submitted by Cesar Carvajal ([facility]). I personally scribed for KRISTAL REYES MD ([facility]) on 10/09/24 at 16:47. Electronically submitted by Cesar Carvajal (English [employer]). I personally scribed for KRISTAL REYES MD ([email or web address]) on 10/09/24 at 17:18. Electronically submitted by Cesar Carvajal (English Helper). KRISTAL REYES MD Oct 09, 2024 16:45
[2024-10-09 17:05] LABS: Basophils # (auto) 0 10 ^3/uL (0-0.2); Basophils % (auto) 0.4 % (0.0-2.0); Eosinophils # (auto) 0.1 10 ^3/uL (0-0.8); Eosinophils % (auto) 1.8 % (0.0-7.0); Hematocrit 38.6 % (41.0-53.0); Hemoglobin 12.9 g/dL (13.5-17.5); Lymphocytes # (auto) 2.7 10 ^3/uL (0.4-5.4); Lymphocytes % (auto) 33.4 % (10.0-50.0); Mean Corpuscular Hemoglobin 29.4 pg (28.0-32.0); Mean Corpuscular Hgb Conc. 33.4 g/dL (32.0-36.0); Mean Corpuscular Volume 87.9 fL (80.0-100.0); Monocytes # (auto) 0.7 10 ^3/uL (0-1.3); Monocytes % (auto) 8.5 % (0.0-12.0); Neutrophils # (auto) 4.5 10 ^3/uL (1.6-8.6); Neutrophils % (auto) 55.9 % (37.0-80.0); Platelet Count (auto) 190 10^3/uL (140-450); Red Cell Distribution Width 13.9 % (11.8-14.3)
[2024-10-09 17:12] LABS: Potassium 4.4 mmol/L (3.5-5.1)
[2024-10-09 17:13] LABS: Anion Gap 8 (5-15); Calcium 9.5 mg/dL (8.7-10.4); Carbon Dioxide 30 mmol/L (20-31)
[2024-10-09 17:18] LABS: Glucose 76 mg/dL (74-106)
[2024-10-09 17:20] LABS: Blood Urea Nitrogen 8 mg/dL (9-23)
[2024-10-09 17:21] LABS: Chloride 109 mmol/L (98-107); Sodium 147 mmol/L (136-145)
--- NOTE | 2024-10-09 17:25 | DVH ---
CHEST RADIOGRAPH Indication: cp Technique: Single frontal view of the chest was obtained Comparison: None FINDINGS: Lines and Tubes: Anterior fusion cervical spine. Sternal sutures in place Lungs: No focal consolidation. Pleura: No effusion. No pneumothorax. Cardiomediastinal contours: Unremarkable Bones: No acute osseous abnormality. IMPRESSION: 1. No acute cardiopulmonary disease.
[2024-10-09 17:38] VITALS: PULSE 90
[2024-10-09 17:38] LABS: BUN/Creatinine Ratio 6.4 (10.0-20.0)
[2024-10-09] MEDS: MORPHINE SULFATE INJ 2 MG/ml SYRG IV ONE (17:58)
[2024-10-09] MEDS: MORPHINE SULFATE 4 MG/ML SYR/VIAL ONE (17:58)
[2024-10-09] MEDS: ASPirin 325 MG TAB PO ONE (17:59)
[2024-10-09] MEDS: NITROGLYCERIN 0.4 MG SL TAB SL ONE (17:59)
[2024-10-09] MEDS: ONDANSETRON HCL 4 MG/2 ML VIAL IV ONE (18:02)
--- NOTE | 2024-10-09 20:34 | ECG ---
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
--- NOTE | 2024-10-14 07:10 | ECG ---
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
== END 2024-10-09 21:22 | disposition left against medical advice (07) ==
LOC: ER 16:30
DX: I20.0 Unstable angina (principal); I11.0 Hypertensive heart disease with heart failure; I50.9 Heart failure, unspecified; I25.2 Old myocardial infarction; Z98.890 Other specified postprocedural states; Z95.1 Presence of aortocoronary bypass graft; Z90.49 Acquired absence of other specified parts of digestive tract; Z79.899 Other long term (current) drug therapy; Z88.5 Allergy status to narcotic agent; Z88.1 Allergy status to other antibiotic agents
CPT/HCPCS: 36415; 71045; 80048; 84484; 85025; 93005; 96374; 99285; J2270; J2405